=== PATIENT | female | born 1950 | race Caucasian/White ===

== ENCOUNTER 2017-11-11 10:07 | Inpatient (IN) | payer OTHER ==
[~2017-11-11 10:07] MED LIST: LEVALBUTEROL 1.25 MG/3 ML NEB ONE
[2017-11-11] MEDS ORDERED: METHYLPREDNISOLONE 125 MG INJ ONE (10:10)
[2017-11-11] MEDS ORDERED: FUROSEMIDE 40 MG/4 ML VIAL ONE (10:10)
--- OUTSIDE RECORDS SUMMARY | 2017-11-11 10:10 | XMS REPORT | Clinical Summary ---
:1950 Author Organization [facility] Address [address] [place] [address] Care Team Providers Name Role Phone Tushar Melendez MD Primary Care Provider Allergies Active Allergy Reactions Severity Noted Date Comments Codeine Hives, Swelling 07/07/2016 Morphine Other (See Comments) 07/07/2016 Hallucinations Penicillins Hives, Swelling 07/07/2016 Current Medications Prescription Sig. Disp. Refills Start Date End Date Status ALPRAZolam (XANAX) 0.25 MG Take 0.25 mg by 06/21/2016 Active tablet mouth 2 (two) times a day. acetaZOLAMIDE (DIAMOX) 250 Take 125 mg by 06/17/2016 Active MG tablet mouth daily. carvedilol (COREG) 3.125 Take 3.125 mg by 06/12/2016 Active MG tablet mouth 2 (two) times a day with meals. clopidogrel (PLAVIX) 75 mg Take 75 mg by 06/12/2016 Active tablet mouth daily. furosemide (LASIX) 40 mg Take 40 mg by 06/12/2016 Active tablet mouth daily. predniSONE (DELTASONE) 10 Take 10 mg by 06/21/2016 Active mg tablet mouth 2 (two) times a day. ibandronate (BONIVA) 150 Take 150 mg by 06/25/2016 Active mg tablet mouth every 30 (thirty) days. sacubitril-valsartan Take 1 tablet by Active (ENTRESTO) 24-26 mg tablet mouth daily. per tablet calcium carbonate-vitamin Take 1 tablet by Active D3 500 mg-200 unit per mouth daily. tablet Active Problems Problem Noted Date HTN (hypertension) 07/07/2016 CHF (congestive heart failure) 07/07/2016 CAD (coronary artery disease) 07/07/2016 COPD (chronic obstructive pulmonary disease) 07/07/2016 PAF (paroxysmal atrial fibrillation) 07/07/2016 CHF (congestive heart failure), NYHA class III 07/07/2016 Family History Medical History Relation Name Comments Heart disease Brother Heart disease Maternal Grandmother Hypertension Mother Stroke Mother Relation Name Status Comments Brother Maternal Grandmother Mother Social History Tobacco Use Types Packs/Day Years Used Date Current Every Day Smoker Cigarettes 0.5 50 Tobacco Cessation: Ready to Quit: Yes Alcohol Use Drinks/Week oz/Week Comments No Sex Assigned at Date Recorded Not on file Last Filed Vital Signs Not on file Plan of Treatment Health Maintenance Due Date Last Done Comments COLONOSCOPY 1998 MAMMOGRAM 1998 SHINGRIX VACCINE (#1) 1998 ZOSTER VACCINE 2008 PNEUMOCOCCAL POLYSACCHARIDE VACCINE AGE 65 AND OVER 2013 PNEUMOCOCCAL-13 2013 INFLUENZA VACCINE 02/15/2018 Implants Implanted Type Area Inspector Wire Rope Device Expiration Model / Identifier Date Serial / Lot Endotak Gifford G Model 0295 59 Cm Df4 Tachy Lead - [id number] Cardiac Pacing N/A: [place] 06/07/2018 0295 / Implanted: 07/07/2016 (Quantity not on file) Leads or N/A [employer] [id number] / Electrodes or [id number] Accessories Acuity X 4 - [id number] Cardiac Pacing N/A: [place] 11/23/2017 4671 / Implanted: 07/07/2016 (Quantity not on file) Leads or N/A [employer] CRM [id number] / Electrodes or [id number] Accessories Ingevity Mri Pacing Lead 45cm - [id number] Cardiac Pacing N/A: [place] [id number] / Implanted: 07/07/2016 (Quantity not on file) Leads or N/A [employer] [id number] / Electrodes or [id number] Accessories Generator Outside Operator-D Inogen X4 Df4 - [id number] Defibrillator N/A: [place] 03/26 G148 / Implanted: 07/07/2016 (Quantity not on file) ICD Devices N/A [employer] [id number] / [id number] Results Not on fileafter 11/10/2016 Insurance Payer Benefit Plan / Group Subscriber ID Type Phone Address MEDICARE MEDICARE PART A AND B xxxxxxxxxx Medicare [place], [place]
[2017-11-11 10:25] LABS: Arterial Blood Carboxyhemoglob 1.3 % (0-1.5); Blood Gas Oxyhemoglobin 97.3 % (94-97); Blood O2 Saturation 99.3 % (92-98.5)
[2017-11-11 10:59] LABS: Absolute Monocytes 0.7 K/uL (0.1-1.3); Absolute Neutrophil 11.9 K/uL (1.8-8.0); Basophils % 0.4 % (0-1.3); Eosinophils % 2.4 % (0-4.4); Hematocrit 40.4 % (36.0-45.0); Lymphocytes % 7.2 % (15.3-44.8); MCH 29.2 pg (27.0-35.0); MCV 93.2 fL (80-100); MPV 8.3 fL (7.6-11.3); Monocytes % 5.3 % (3.3-12.3); RBC Red Blood Cell Count 4.33 M/uL (3.86-4.86)
[2017-11-11 11:04] LABS: Bicarbonate 35 mEq/L (21-31); Glucose Level 192 mg/dL (65-120); Potassium 4.5 mEq/L (3.6-5.0); Sodium Level 137 mEq/L (135-145)
--- NOTE | 2017-11-11 11:04 | RAD REPORT ---
EXAM DESCRIPTION: RAD - Chest Single View - 11/11/2017 10:57 am CLINICAL HISTORY: Shortness of breath COMPARISON: September 20 TECHNIQUE: AP portable chest image was obtained 1046 hours . FINDINGS: Lungs are extensively fibrotic. Pattern is increased slightly from comparison. Over the sh ort interval this is probably superimposed edema or infiltrate. No mass or consolidation. Heart and v asculature are normal. No measurable pleural effusion and no pneumothorax. No gross bony abnormality seen. No acute aortic finding. Aortic calcifications are again noted. Pacemaker/defibrillator remains in place. IMPRESSION: Diffusely prominent interstitial lung markings increased slightly over baseline. Over such a short interval, interval increase is probably edema or infiltrate rather than progressive fibrosis.
[2017-11-11 11:10] LABS: ALT/SGPT 17 IU/L (10-60); AST/SGOT 27 IU/L (10-42); Albumin 4.6 g/dL (3.2-5.5); Alkaline Phosphatase 93 IU/L (42-121); BUN Blood Urea Nitrogen 13 mg/dL (6-20); Bilirubin Direct 0.1 mg/dL (0-0.2); Bilirubin Total 0.3 mg/dL (0.3-1.2); Creatine Phosphokinase 40 IU/L (22-269); Magnesium 1.9 mg/dL (1.8-2.5); Protein, Total 8.1 g/dL (6.0-8.3)
[2017-11-11 11:13] LABS: CKMB Creatine Kinase MB 6.5 ng/ml (0.3-4.0)
[2017-11-11 11:33] LABS: Protime INR 0.86
--- NOTE | 2017-11-11 11:35 | ER ---
Nurse's Notes [facility] Name: Jeannette Wing Age: 67 yrs Sex: Female : 1950 Arrival Date: 11/11/2017 Time: 10:09 Bed 3 Private MD: Diagnosis: Acute and chronic respiratory failure with hypercapnia;Acute on chronic systolic (congestive) heart failure;Chronic obstructive pulmonary disease with (acute) exacerbation Presentation: 11/11 10:23 Presenting complaint: EMS states: EMS states patient started having increased SOB that ae1 started the previous evening and it gradually increased. EMS states patient was alert upon arrival and gradually became more lethargic, patient was placed on Bipap. Transition of care: patient was not received from another setting of care. Onset of symptoms was November 10, 2017 at 18:00. Initial Sepsis Screen: Does the patient meet any 2 criteria? RR > 20 per min. HR > 90 bpm. Care prior to arrival: Bipap machine applied. 10:23 Method Of Arrival: EMS: [facility] ae1 10:23 Acuity: RON 2 ae1 12:40 Initial Sepsis Screen: Does the patient have a suspected source of infection? Yes: ae1 Productive cough/pneumonia. Triage Assessment: 10:20 General: Appears uncomfortable, slender, malnourished, Behavior is cooperative, ae1 anxious, restless. Pain: Denies pain. EENT: No signs and/or symptoms were reported regarding the EENT system. Neuro: Level of Consciousness is awake, obeys commands, Oriented to person, place, situation. Cardiovascular: Heart tones S1 S2 Patient's skin is warm and dry. Rhythm is irregular. Respiratory: Airway is patent Respiratory effort is labored, gasping, with nasal flaring, with retractions, shallow, Respiratory pattern is regular, tachypnea. GI: No signs and/or symptoms were reported involving the gastrointestinal system. Abdomen is round non-distended. : No signs and/or symptoms were reported regarding the genitourinary system. Derm: Skin is pale. Musculoskeletal: No signs and/or symptoms reported regarding the musculoskeletal system. 10:20 Respiratory: Reports shortness of breath cough that is air hunger labored breathing ae1 Onset: The symptoms/episode began/occurred gradually, the patient has severe shortness of breath. Historical: - Allergies: 10:40 Morphine; ae1 10:40 PENICILLINS; ae1 - Home Meds: 10:40 albuterol sulfate 2.5 mg /3 mL (0.083 %) Inhl nebu 3 mL 3 times per day [Active]; ae1 Plavix 75 mg Oral tab 1 tab once daily [Active]; prednisone 5 mg Oral tab 1 tab once daily [Active]; furosemide 20 mg Oral tab 1 tab once daily [Active]; Coreg 3.125 mg Oral tab 1 tab 2 times per day [Active]; acetaminophen-codeine 300-30 mg Oral tab 1 tab BID [Active]; proair [Active]; acetazolamide 250 mg Oral tab 1 tab once daily [Active]; aspirin 81 mg Oral chew 1 tab once daily [Active]; - PMHx: 10:47 CHF; COPD; Hypertension; ae1 - Immunization history:: Adult Immunizations not up to date. - Social history:: Smoking status: Patient uses tobacco products, smokes one pack cigarettes per day. Screenin:12 Abuse screen: Denies threats or abuse. Nutritional screening: No deficits noted. ae1 Tuberculosis screening: No symptoms or risk factors identified. Fall Risk None identified. Assessment: 10:15 Cardiovascular: Heart tones S1 S2 Patient's skin is warm and dry. Respiratory: Airway ae1 is patent Respiratory effort is labored, with nasal flaring, with retractions, shallow, Respiratory pattern is regular, Breath sounds are absent bilaterally. 11:25 Reassessment: Patient appears more relaxed. patient is resting with eyes closed, ae1 awakens to verbal stimuli, respirations less labored. Patient states symptoms have improved. 11:30 Reassessment: Provider at bedside discussing plan of care. ae1 12:30 Reassessment: Patient appears in no apparent distress at this time. Patient and/or ae1 family updated on plan of care and expected duration. Pain level reassessed. Patient states feeling better. Patient states symptoms have improved. 12:41 Reassessment: Report called to stephanie Whitehead nurse. Registration notified that report ae1 has been called. Vital Signs: 10:01 BP 201 / 102; Pulse 115; Resp 35; Pulse Ox 91% on BiPAP; ae1 10:13 BP 168 / 93; Pulse 102; Resp 29; Pulse Ox 100% on 30% BiPAP; ae1 10:26 BP 142 / 84; Pulse 108; Resp 28; Pulse Ox 100% on 30% BiPAP; ae1 10:35 BP 130 / 82; Pulse 101; Resp 32; Pulse Ox 100% on 30% BiPAP; ae1 10:45 BP 119 / 72; Pulse 108; Resp 26; Pulse Ox 95% on BiPAP; ae1 10:50 BP 121 / 85; Pulse 111; Resp 26; Pulse Ox 97% on 30% BiPAP; ae1 11:02 Weight 40.82 kg (R); ae1 11:15 BP 99 / 70; Pulse 93; Resp 23; Pulse Ox 98% on 30% BiPAP; ae1 12:11 BP 121 / 73; Pulse 103; Resp 22; Pulse Ox 100% on 30% BiPAP; ae1 12:34 BP 112 / 74; Pulse 96; Resp 24; Pulse Ox 98% on 30% BiPAP; ae1 12:36 Temp 98.5(A); ae1 ED Course: 10:09 Patient arrived in ED. jr8 10:15 EKG done, by certified medical technician assistant. reviewed by Delonte Medina MD. tc 10:16 Josue Millard PA is PHCP. jr8 10:16 Delonte Medina MD is Attending Physician. jr8 10:17 Diego Christian, BENITO is Primary Nurse. ae1 10:25 Triage completed. ae1 10:25 Arm band placed on right wrist. EKG completed in triage. Results shown to MD. ae1 10:26 Placed in gown. Bed in low position. Call light in reach. Side rails up X2. Cardiac ae1 monitor on. Pulse ox on. NIBP on. Warm blanket given. 10:53 X-ray completed. Portable x-ray completed in exam room. Patient tolerated procedure jb2 well. 10:54 XRAY Chest (1 view) In Process Unspecified. EDMS 11:34 Tushar Conley MD is Hospitalizing Provider. jr8 12:40 No provider procedures requiring assistance completed. Patient admitted, IV remains in ae1 place. Administered Medications: 10:18 Drug: Nitro Drip - (Nitroglycerin 50 mg, D5W 250 ml) Route: IV; Rate: 10 mcg/min; Site: la1 left hand; 10:57 Follow up: Response: Other; titrated to 5mcg/min at 1050 ae1 11:01 Follow up: Response: Other; Titrated to 2 mcg/min ae1 11:27 Follow up: Discontinued infusion per provider after notified of low BP. ae1 10:18 Drug: Xopenex (3) 1.25 mg Route: Inhalation; la1 10:19 Drug: Lasix 40 mg Route: IVP; Site: left hand; la1 10:19 Drug: SOLU-Medrol 125 mg Route: IVP; Site: left hand; la1 10:20 Not Given (Duplicate Order): SOLU-Medrol 125 mg IVP once la1 Intake: Outcome: 11:35 Decision to Hospitalize by Provider. jr8 13:37 Admitted to Med/surg accompanied by tech, family with patient, via stretcher, room 228, ae1 with oxygen, with chart, Report called to receiving nurse. 13:37 Condition: stable 13:50 Patient left the ED. ae1 Signatures: Dispatcher [employer] EDMS Gurdeep Melton Josh, PA PA jr8 Sandrine Munroe, cna pct EKG Ttc Jase Beal, RN RN la1 Diego Christian, RN RN ae1
[2017-11-11 11:40] LABS: Arterial Blood Carboxyhemoglob 1.7 % (0-1.5); Blood Gas Oxyhemoglobin 92.5 % (94-97); Blood O2 Saturation 94.7 % (92-98.5)
[2017-11-11] MEDS ORDERED: ONDANSETRON 4 MG/2 ML VIAL IV PRN (12:56)
--- NOTE | 2017-11-11 13:51 | EDPHYS ---
Physician Documentation [facility] Name: Jeannette Wing Age: 67 yrs Sex: Female : 1950 Arrival Date: 11/11/2017 Time: 10:09 Bed 3 Private MD: ED Physician Delonte Medina HPI: 11/11 10:27 This 67 yrs old Female presents to ER via EMS with complaints of Respiratory jr8 Distress. 10:27 The patient has shortness of breath at rest. Onset: The symptoms/episode began/occurred jr8 acutely, yesterday, and became worse and became persistent. Duration: The symptoms are continuous. The patient's shortness of breath has no apparent modifying factors. Associated signs and symptoms: Pertinent positives: non-productive cough. Severity of symptoms: At their worst the symptoms were severe. It is unknown whether or not the patient has had similar symptoms in the past. The patient has been recently seen by a physician:. Historical: - Allergies: 10:40 Morphine; ae1 10:40 PENICILLINS; ae1 - Home Meds: 10:40 albuterol sulfate 2.5 mg /3 mL (0.083 %) Inhl nebu 3 mL 3 times per day [Active]; ae1 Plavix 75 mg Oral tab 1 tab once daily [Active]; prednisone 5 mg Oral tab 1 tab once daily [Active]; furosemide 20 mg Oral tab 1 tab once daily [Active]; Coreg 3.125 mg Oral tab 1 tab 2 times per day [Active]; acetaminophen-codeine 300-30 mg Oral tab 1 tab BID [Active]; proair [Active]; acetazolamide 250 mg Oral tab 1 tab once daily [Active]; aspirin 81 mg Oral chew 1 tab once daily [Active]; - PMHx: 10:47 CHF; COPD; Hypertension; ae1 - Immunization history:: Adult Immunizations not up to date. - Social history:: Smoking status: Patient uses tobacco products, smokes one pack cigarettes per day. ROS: 10:27 Eyes: Negative for injury, pain, redness, and discharge, ENT: Negative for injury, jr8 pain, and discharge, Neck: Negative for injury, pain, and swelling, Cardiovascular: Negative for chest pain, palpitations, and edema, Abdomen/GI: Negative for abdominal pain, nausea, vomiting, diarrhea, and constipation, Back: Negative for injury and pain, MS/Extremity: Negative for injury and deformity, Skin: Negative for injury, rash, and discoloration, Neuro: Negative for headache, weakness, numbness, tingling, and seizure. 10:27 Respiratory: Positive for cough, dyspnea on exertion, shortness of breath, wheezing. Exam: 10:27 Eyes: Pupils equal round and reactive to light, extra-ocular motions intact. Lids and jr8 lashes normal. Conjunctiva and sclera are non-icteric and not injected. Cornea within normal limits. Periorbital areas with no swelling, redness, or edema. ENT: Nares patent. No nasal discharge, no septal abnormalities noted. Tympanic membranes are normal and external auditory canals are clear. Oropharynx with no redness, swelling, or masses, exudates, or evidence of obstruction, uvula midline. Mucous membranes moist. Neck: Trachea midline, no thyromegaly or masses palpated, and no cervical lymphadenopathy. Supple, full range of motion without nuchal rigidity, or vertebral point tenderness. No Meningismus. Abdomen/GI: Soft, non-tender, with normal bowel sounds. No distension or tympany. No guarding or rebound. No evidence of tenderness throughout. Back: No spinal tenderness. No costovertebral tenderness. Full range of motion. Skin: Warm, dry with normal turgor. Normal color with no rashes, no lesions, and no evidence of cellulitis. MS/ Extremity: Pulses equal, no cyanosis. Neurovascular intact. Full, normal range of motion. Neuro: Awake and alert, GCS 15, oriented to person, place, time, and situation. Cranial nerves II-XII grossly intact. Motor strength 5/5 in all extremities. Sensory grossly intact. Cerebellar exam normal. Normal gait. 10:27 Cardiovascular: Rate: tachycardic, Rhythm: regular, Pulses: Pulses are 2+ in right radial artery and left radial artery. Heart sounds: normal, normal S1and S2, no S3 or S4, no murmur, no rub, no gallop, Edema: is not appreciated, JVD: is not appreciated. 10:27 Respiratory: severe repiratory distress is noted, Respirations: labored breathing, accessory muscle usage, intercostal retractions, tachypnea, Breath sounds: decreased breath sounds, that are moderate, are scattered, wheezing: expiratory that is mild, is heard diffusely. Vital Signs: 10:01 BP 201 / 102; Pulse 115; Resp 35; Pulse Ox 91% on BiPAP; ae1 10:13 BP 168 / 93; Pulse 102; Resp 29; Pulse Ox 100% on 30% BiPAP; ae1 10:26 BP 142 / 84; Pulse 108; Resp 28; Pulse Ox 100% on 30% BiPAP; ae1 10:35 BP 130 / 82; Pulse 101; Resp 32; Pulse Ox 100% on 30% BiPAP; ae1 10:45 BP 119 / 72; Pulse 108; Resp 26; Pulse Ox 95% on BiPAP; ae1 10:50 BP 121 / 85; Pulse 111; Resp 26; Pulse Ox 97% on 30% BiPAP; ae1 11:02 Weight 40.82 kg (R); ae1 11:15 BP 99 / 70; Pulse 93; Resp 23; Pulse Ox 98% on 30% BiPAP; ae1 12:11 BP 121 / 73; Pulse 103; Resp 22; Pulse Ox 100% on 30% BiPAP; ae1 12:34 BP 112 / 74; Pulse 96; Resp 24; Pulse Ox 98% on 30% BiPAP; ae1 12:36 Temp 98.5(A); ae1 MDM: 10:16 Patient medically screened. jr8 11:33 Data reviewed: vital signs, nurses notes, lab test result(s), EKG, radiologic studies, jr8 plain films, and as a result, I will admit patient. Data interpreted: Pulse oximetry: on room air is 88 %. Counseling: I had a detailed discussion with the patient and/or guardian regarding: the historical points, exam findings, and any diagnostic results supporting the discharge/admit diagnosis, lab results, radiology results, the need for further work-up and treatment in the hospital. 11/11 10:15 Order name: ABG; Complete Time: eb 11/11 10:17 Order name: Basic Metabolic Panel; Complete Time: :20 11/11 10:17 Order name: BNP; Complete Time: 11:11/11 10:17 Order name: CBC with Diff; Complete Time: 11:20 11/11 10:17 Order name: Ckmb; Complete Time: 11:11/11 10:17 Order name: CPK; Complete Time: 11:20 11/11 10:17 Order name: LFT's; Complete Time: 11:20 11/11 10:17 Order name: Magnesium; Complete Time: 11:20 11/11 10:17 Order name: PT-INR; Complete Time: 12:07 11/11 10:17 Order name: Ptt, Activated; Complete Time: 12:07 11/11 10:17 Order name: Troponin (emerg Dept Use Only); Complete Time: 11:20 11/11 10:17 Order name: Blood Culture Adult (2) 11/11 10:20 Order name: Lactate; Complete Time: 10:58 11/11 11:24 Order name: ABG; Complete Time: 12:11/11 10:17 Order name: XRAY Chest (1 view); Complete Time: 11:20 11/11 10:17 Order name: EKG; Complete Time: 10:18 11/11 10:17 Order name: Cardiac monitoring; Complete Time: 10:11/11 10:17 Order name: EKG - Nurse/Tech; Complete Time: 10:11/11 10:17 Order name: IV Saline Lock; Complete Time: 10:11/11 10:17 Order name: Labs collected and sent; Complete Time: 10:11/11 10:17 Order name: O2 Per Protocol; Complete Time: 10:19 11/11 10:17 Order name: O2 Sat Monitoring; Complete Time: 10:11/11 10:17 Order name: Urine Dipstick-Ancillary (obtain specimen); Complete Time: 13:06 11/11 10:21 Order name: BIPAP 11/11 12:35 Order name: Urine Dipstick--Ancillary (enter results) ag Administered Medications: 10:18 Drug: Nitro Drip - (Nitroglycerin 50 mg, D5W 250 ml) Route: IV; Rate: 10 mcg/min; Site: [facility] left hand; 10:57 Follow up: Response: Other; titrated to 5mcg/min at 1050 ae1 11:01 Follow up: Response: Other; Titrated to 2 mcg/min ae1 11:27 Follow up: Discontinued infusion per provider after notified of low BP. ae1 10:18 Drug: Xopenex (3) 1.25 mg Route: Inhalation; la1 10:19 Drug: Lasix 40 mg Route: IVP; Site: left hand; la1 10:19 Drug: SOLU-Medrol 125 mg Route: IVP; Site: left hand; la1 10:20 Not Given (Duplicate Order): SOLU-Medrol 125 mg IVP once la1 Disposition: 17:22 Co-signature as Attending Physician, Delonte Medina MD I agree with the assessment and kdr plan of care. Disposition: 11/11/17 11:35 Hospitalization ordered by Tushar Conley for Inpatient Admission. Preliminary diagnosis are Acute and chronic respiratory failure with hypercapnia, Acute on chronic systolic (congestive) heart failure, Chronic obstructive pulmonary disease with (acute) exacerbation. - Bed requested for Telemetry/MedSurg (Inpatient). - Status is Inpatient Admission. ae1 - Condition is Fair. - Problem is new. - Symptoms have improved. UTI on Admission? No Signatures: Dispatcher [employer] Sri Reese RN Delonte Bryant MD MD kdr Roszak, Josh, PA PA jr8 Jase Beal RN RN la1 Diego Christian RN RN ae1 Marine Chambers
[2017-11-11 14:10] VITALS: BMI 18.3
[2017-11-11 14:49] LABS: Urine Appearance CLEAR; Urine Bilirubin NEGATIVE (NEG); Urine Blood TRACE (NEG); Urine Color YELLOW; Urine Glucose NEGATIVE (NEG); Urine Protein NEGATIVE (NEG); Urine Urobilinogen 0.2 mg/dL (0.2-1.0)
[2017-11-11 14:56] LABS: Urine Microscopic Reflex NO UMIC
--- NOTE | 2017-11-11 16:26 | EKG ---
Test Date: 2017-11-11 Test Time: 10:10:34 [employer]: [employer] MEASUREMENT RESULTS: Intervals: Rate: 104 WI: 112 QRSD: 102 QT: 372 QTc: 489 [place]: P: 85 WI: 112 QRS: 78 T: 71 INTERPRETIVE STATEMENTS: Atrial-sensed ventricular-paced rhythm Biventricular pacemaker detected Abnormal ECG Compared to ECG 09/20/2017 21:34:32 No significant changes Electronically Signed On 11-11-17 16:23:37 CDT by Petar Huizar
[2017-11-11] MEDS: FUROSEMIDE 20 MG/ 2ML VIAL IV SCH (17:29)
[2017-11-11] MEDS: METHYLPREDNISOLONE 40 MG INJ IV SCH (17:30)
[2017-11-11] MEDS: CARVEDILOL 3.125 MG TAB PO SCH (21:00)
[2017-11-11] MEDS: levoFLOXacin 500 MG TAB PO SCH (21:37)
[2017-11-11] MEDS: SACUBITRIL/VALSARTAN 24/26 MG TAB PO SCH (21:37)
[2017-11-12] MEDS: ACETAMINOPHEN 500 MG TAB PO PRN ×3 (00:33→19:19)
[2017-11-12] MEDS: METHYLPREDNISOLONE 40 MG INJ IV SCH ×2 (00:33→06:17)
[2017-11-12] MEDS: IPRATROPIUM BROM 0.5MG/2.5ML NEB PRN ×2 (05:32→13:22)
[2017-11-12] MEDS: ALBUTEROL 2.5 MG/3 ML NEB SOL NEB PRN ×2 (05:33→13:22)
[2017-11-12 05:45] LABS: Absolute Lymphocytes (CBC) 0.5 K/uL (0.7-4.9); Absolute Monocytes 0.3 K/uL (0.1-1.3); Absolute Neutrophil 10.7 K/uL (1.8-8.0); BUN Blood Urea Nitrogen 28 mg/dL (6-20); Bicarbonate 38 mEq/L (21-31); Glucose Level 144 mg/dL (65-120); Hematocrit 34.2 % (36.0-45.0); Lymphocytes % 4.3 % (15.3-44.8); MCV 92.7 fL (80-100); MPV 8.6 fL (7.6-11.3); Monocytes % 2.8 % (3.3-12.3); Potassium 4.4 mEq/L (3.6-5.0); RBC Red Blood Cell Count 3.69 M/uL (3.86-4.86); Sodium Level 139 mEq/L (135-145)
--- NOTE | 2017-11-12 06:14 | HP ---
Date of Admission: 11/11/2017 Chief Complaint: Respiratory failure. History Of Present Illness: A 67-year-old female was brought to the emergency room with increased dy spnea. The patient's evaluation showed acute on chronic respiratory failure with elevated pCO2. The patient is known to have history of severe COPD as well as congestive heart failure. The patient de nied any history of chest pain. Past Medical History: Positive for COPD, congestive heart failure, hypertension. Family History: Noncontributory. Personal History: The patient smokes intermittently. Home Medicines: Please refer to the chart. Review of Systems: The patient denied any syncope, fever, chills, rigors. Physical Examination: General: A 67-year-old female, on BiPAP. HEENT: Otherwise negative. Neck: Supple, JVD negative. Chest: Bilateral wheezes. Poor air entry. Heart: Regular. Abdomen: Soft, nontender. Extremities: No edema. Laboratory Data: White count 14,000. Chest x-ray showed COPD findings. No evidence of pneumonia. Assessment: 1.Chronic obstructive pulmonary disease exacerbation with acute respiratory failure. 2.Need for BiPAP. 3.Congestive heart failure, compensated. 4.Hypertension. Plan: The patient is on BiPAP and requesting DNR. The patient will be given supportive care as well as breathing treatments. The patient will receive IV steroids. RAMIRO/KARLOS Voice ID: [id number]
[2017-11-12 08:03] LABS: Blood Morphology Comment NOT SEEN (NOT SEEN); Platelet Estimate ADEQ
[2017-11-12] MEDS: acetaZOLAMIDE 250 MG TAB PO SCH (08:56)
[2017-11-12] MEDS: FUROSEMIDE 20 MG/ 2ML VIAL IV SCH ×2 (08:56→16:27)
[2017-11-12] MEDS: ALPRAZOLAM 0.25 MG TABLET PO PRN ×2 (08:56→19:19)
[2017-11-12] MEDS: CARVEDILOL 3.125 MG TAB PO SCH ×2 (08:56→20:48)
[2017-11-12] MEDS: SACUBITRIL/VALSARTAN 24/26 MG TAB PO SCH ×2 (08:56→20:48)
[2017-11-12] MEDS: CLOPIDOGREL 75 MG TABLET PO SCH (08:56)
--- NOTE | 2017-11-12 10:23 | P.CNS ---
Date of Consult: 11/12/17 Reason for Consult: Respiratory failure Chief Complaint: Altered mental status History of Present Illness: Patient is 67 years of age well known to me she has a history of terminal COPD apparently her light went out last night became more hypoxic short of breath altered mental status was admitted to this hospital with hypoxic hypercapnic respiratory failure she is back to her baseline doing well has some cough for about a week otherwise shortness of breath is stable denies any edema in fact I recently saw her min office in November she is doing good Allergies morphine Allergy (Verified 07/07/17 06:12) Anaphylaxis Penicillins Allergy (Verified 07/07/17 06:12) Anaphylaxis codeine Adverse Reaction (Verified 07/07/17 06:12) Due to Pacemaker/Defibrillator Home Medications: Clopidogrel Bisulfate [Plavix*] 75 mg PO DAILY #0 tablet 12/05/13 Carvedilol [Coreg*] 3.125 mg PO BID 06/04/15 Furosemide [Lasix] 40 mg PO DAILY 06/04/15 Alprazolam [Xanax*] 0.25 mg PO BID PRN #20 tab 04/11/16 Prednisone [Prednisone*] 5 mg PO DAILY #90 tab 07/30/16 Acetazolamide [Diamox*] 250 mg PO DAILY 11/26/16 Acetaminophen with Codeine [Acetaminophen-Cod #3 Tablet] 1 each PO BID PRN 07/07 Albuterol Neb [Proventil 0.083% Neb Soln] 1 vial NEB PRN PRN 09/21/17 Arformoterol Tartrate [Brovana] 1 vial NEB PRN PRN 09/21/17 Sacubitril/Valsartan [Entresto 24 mg-26 mg Tablet] 1 pill PO BID 09/21/17 - Past Medical/Surgical History Diabetic: No -: tendinitis on both hands -: COPD -: CHF -: HTN -: arthritis -: pacemaker/defibrillator -: HYSTERECTOMY -: APPENDECTOMY - Family History Mother Notes: mom from collapsing blood vessels Father Medical History: Heart disease Notes: heart attack Brother Medical History: Cancer Notes: lung cancer - Social History Smoking Status: Current every day smoker Alcohol use: No CD- Drugs: No Caffeine use: Yes Place of Residence: Home Review of Systems 10-point ROS is otherwise unremarkable General: Weakness Respiratory: Cough, Shortness of Breath Physical Examination Temp Pulse Resp BP Pulse Ox 97.3 F 103 H 18 152/78 H 97 11/12/17 08:00 11/12/17 08:00 11/12/17 08:00 11/12/17 08:00 11/12/17 08:00 General: Alert, Oriented x3 HEENT: Atraumatic Neck: Supple Respiratory: Expiratory wheezes Cardiovascular: No edema, Normal pulses, Regular rate/rhythm Laboratory Data (last 24 hrs) 11/11/17 10:30: PT 10.1, INR 0.86, APTT 28.9 11/11/17 10:30: WBC 14.0 H, Hgb 12.7, Hct 40.4, Plt Count 214 11/11/17 10:30: B-Natriuretic Peptide 184 H 11/11/17 10:30: Sodium 137, Potassium 4.5, BUN 13, Creatinine 0.52, Glucose 192 H, Magnesium 1.9, Total Bilirubin 0.3, AST 27, ALT 17, Alkaline Phosphatase 93 - Problems (1) COPD exacerbation Onset Date: 06/04/15 Current Visit: No Status: Acute Plan: Patient is 67 years of age with a history of terminal COPD admitted with worsening dyspnea hypercapnia altered mental status apparently have light went out in the apartment that she was unaware of it back to her baseline she is coughing up some phlegm denies any edema echocardiogram was normal recently of order some sputum cultures patient can be discharged home tomorrow change to p.o. prednisone resume her home medications she has of BiPAP at home
[2017-11-12] MEDS: levoFLOXacin 500 MG TAB PO SCH (20:46)
[2017-11-12] MEDS: predniSONE 20 MG TAB PO SCH (20:46)
[2017-11-13] MEDS: ALPRAZOLAM 0.25 MG TABLET PO PRN ×2 (07:40→17:20)
[2017-11-13] MEDS: ACETAMINOPHEN 500 MG TAB PO PRN ×2 (07:40→17:20)
[2017-11-13] MEDS: ARFORMOTEROL TARTRATE 15 MCG/2 ML VIAL.NEB NEB PRN ×2 (08:45→19:05)
[2017-11-13] MEDS: CARVEDILOL 3.125 MG TAB PO SCH ×2 (09:13→20:53)
[2017-11-13] MEDS: FUROSEMIDE 20 MG/ 2ML VIAL IV SCH ×2 (09:13→17:14)
[2017-11-13] MEDS: acetaZOLAMIDE 250 MG TAB PO SCH (09:13)
[2017-11-13] MEDS: SACUBITRIL/VALSARTAN 24/26 MG TAB PO SCH ×2 (09:14→20:53)
[2017-11-13] MEDS: CLOPIDOGREL 75 MG TABLET PO SCH (09:14)
[2017-11-13] MEDS: predniSONE 20 MG TAB PO SCH ×2 (09:14→20:52)
--- NOTE | 2017-11-13 14:05 | PN ---
The patient is doing better. She is off BiPAP. She is eating. She still has considerable amount of wheezing. The patient will be continued. She has signed DNR. The patient will be reexamined tomor ni. If she is stable, she will be discharged on oral prednisone. RAMIRO/KARLOS Voice ID: [id number] Report ID: [id number]
[2017-11-13] MEDS: ALBUTEROL 2.5 MG/3 ML NEB SOL NEB PRN (19:05)
[2017-11-13] MEDS: IPRATROPIUM BROM 0.5MG/2.5ML NEB PRN (19:06)
[2017-11-13] MEDS: levoFLOXacin 500 MG TAB PO SCH (20:52)
[2017-11-14] MEDS: ACETAMINOPHEN 500 MG TAB PO PRN ×2 (05:52→17:24)
[2017-11-14] MEDS: ALPRAZOLAM 0.25 MG TABLET PO PRN ×2 (05:52→17:25)
[2017-11-14] MEDS: ALBUTEROL 2.5 MG/3 ML NEB SOL NEB PRN ×3 (07:50→20:08)
[2017-11-14] MEDS: ARFORMOTEROL TARTRATE 15 MCG/2 ML VIAL.NEB NEB PRN ×2 (07:51→20:08)
[2017-11-14] MEDS: CARVEDILOL 3.125 MG TAB PO SCH ×2 (08:56→21:13)
[2017-11-14] MEDS: FUROSEMIDE 20 MG/ 2ML VIAL IV SCH ×2 (08:57→17:21)
[2017-11-14] MEDS: CLOPIDOGREL 75 MG TABLET PO SCH (08:57)
[2017-11-14] MEDS: acetaZOLAMIDE 250 MG TAB PO SCH (08:57)
[2017-11-14] MEDS: predniSONE 20 MG TAB PO SCH ×2 (08:57→21:13)
[2017-11-14] MEDS: SACUBITRIL/VALSARTAN 24/26 MG TAB PO SCH ×2 (08:57→21:14)
[2017-11-14] MEDS: IPRATROPIUM BROM 0.5MG/2.5ML NEB PRN (20:08)
[2017-11-14] MEDS: levoFLOXacin 500 MG TAB PO SCH (21:13)
[2017-11-14] MEDS: ENSURE ENLIVE 237 ML CAN PO SCH (21:22)
--- NOTE | 2017-11-15 03:05 | PN ---
The patient needs BiPAP only intermittently. The patient has kazz-qz-ebdrznua wheezing. Sputum is l ight in color and smaller in quantity. The patient signed DNR papers. Presently, she is on oral adalberto roids. If she looks stable, she will be discharged in the a.m. RAMIRO/KARLOS Voice ID: [id number] Report ID: [id number]
[2017-11-15] MEDS: ACETAMINOPHEN 500 MG TAB PO PRN (06:02)
[2017-11-15] MEDS: ALPRAZOLAM 0.25 MG TABLET PO PRN (06:02)
[2017-11-15] MEDS: ARFORMOTEROL TARTRATE 15 MCG/2 ML VIAL.NEB NEB PRN (08:04)
[2017-11-15] MEDS: ENSURE ENLIVE 237 ML CAN PO SCH (09:00)
[2017-11-15] MEDS: predniSONE 20 MG TAB PO SCH (09:51)
[2017-11-15] MEDS: FUROSEMIDE 20 MG/ 2ML VIAL IV SCH (09:51)
[2017-11-15] MEDS: CLOPIDOGREL 75 MG TABLET PO SCH (09:51)
[2017-11-15] MEDS: SACUBITRIL/VALSARTAN 24/26 MG TAB PO SCH (09:51)
[2017-11-15] MEDS: acetaZOLAMIDE 250 MG TAB PO SCH (09:51)
[2017-11-15] MEDS: CARVEDILOL 3.125 MG TAB PO SCH (09:51)
[2017-11-15 11:18] VITALS: O2SAT 100
[2017-11-15 17:02] VITALS: BP 113/70; TEMP 98.6
[2017-11-18 14:24] LABS: Urine Blood TRACE (NEG); Urine Glucose NEGATIVE (NEG); Urine Protein 1+ (NEG); Urine pH 5.5 (5.0-7.0)
--- NOTE | 2017-12-25 18:25 | DS ---
Date of Discharge: 11/15/2017 Final Diagnoses: 1.Chronic obstructive pulmonary disease exacerbation. 2.Acute respiratory failure, needing BiPAP. 3.Compensated congestive heart failure. 4.Hypertension. 5.Anxiety disorder, chronic. Hospital Course: This patient was admitted through emergency room because of acute respiratory failu re with CO2 retention. The patient had BiPAP done. The patient also was seen by Dr. Dupree as a P ulmonary consultation. The patient was given steroids and breathing treatments. She showed improvem ent over the next few days with decreased dyspnea and improved mentation. The patient was discharged on oral steroids and continued breathing treatments, and a followup was advised in the office. Laboratory Data: White count 14,000. Chest x-ray, COPD changes without any pneumonia. RAMIRO/KARLOS Voice ID: [id number] Report ID: [id number]
== END 2017-11-15 12:25 | disposition home or self-care (01) | DRG 190 ==
LOC: ER 10:07 → ERHOLD 11:39 → 2ND 12:43
PROVIDERS: ADMIT Physician Assistant; ATTEND Internal Medicine
PROC: 5A09457 Assistance with Respiratory Ventilation, 24-96 Consecutive Hours, Continuous Positive Airway Pressure (ICD-10-PCS; principal; 2017-11-11)
DX: J44.1 Chronic obstructive pulmonary disease with (acute) exacerbation (principal); J96.22 Acute and chronic respiratory failure with hypercapnia; I11.0 Hypertensive heart disease with heart failure; I50.9 Heart failure, unspecified; Z88.0 Allergy status to penicillin
CPT/HCPCS: 36415; 71045; 80048; 80076; 81003; 82550; 82553; 82805; 83605; 83735; 83880; 84484; 85025; 85610; 85730; 87040; 87070; 87205; 93005; 94640; 94660; 94760; 96374; 96375; 99285; J1940; J2920; J2930; J7512; J7605

== ENCOUNTER 2018-03-20 20:03 | Inpatient (IN) | payer OTHER ==
--- OUTSIDE RECORDS SUMMARY | 2018-03-20 20:05 | XMS REPORT | Clinical Summary ---
:1950 Author Organization [facility] Address [address] [place] [address] Care Team Providers Name Role Phone Tushar [...] Health Maintenance Due Date Last Done Comments BREAST CANCER SCREENING 1998 COLON CANCER SCREENING 1998 SHINGRIX VACCINE (#1) 1998 ZOSTER VACCINE 2008 PNEUMOCOCCAL POLYSACCHARIDE VACCINE AGE 65 AND OVER 2013 PNEUMOCOCCAL-13 2013 INFLUENZA VACCINE 02/15/2018 Implants Implanted Type Area Weaving Instructor Device Expiration Model / Identifier Date Serial / Lot Endotak [place] G Model 0295 59 Cm Df4 Tachy Lead - [id number] Cardiac Pacing N/A: [place] 06/07/2018 0295 / Implanted: 07/07/2016 (Quantity not on file) Leads or N/A Volve [id number] / Electrodes or [id number] Accessories Acuity X 4 - [id number] Cardiac Pacing N/A: [place] 11/23/2017 4671 / Implanted: 07/07/2016 (Quantity not on file) Leads or N/A Volve CRM [id number] / Electrodes or [id number] Accessories Ingevity Mri Pacing Lead 45cm - [id number] Cardiac Pacing N/A: [place] 7740 45 / Implanted: 07/07/2016 (Quantity not on file) Leads or N/A Volve CRM [id number] / Electrodes or [id number] Accessories Generator District Supervisor-D Inogen X4 Df4 - [id number] Defibrillator N/A: [place] 03/26 G148 / Implanted: 07/07/2016 (Quantity not on file) ICD Devices N/A [employer]- [id number] / [id number] Results Not on fileafter 03/19/2017 Insurance Payer Benefit Plan / Group Subscriber ID Type Phone Address MEDICARE MEDICARE PART A AND B xxxxxxxxxx Medicare [place], [place]
[2018-03-20 20:51] LABS: Arterial Blood Carboxyhemoglob 1.3 % (0-1.5); Blood Gas Oxyhemoglobin 96.9 % (94-97); Blood O2 Saturation 99.3 % (92-98.5)
[2018-03-20 20:52] LABS: Absolute Monocytes 0.9 K/uL (0.1-1.3); Absolute Neutrophil 8.1 K/uL (1.8-8.0); Basophils % 0.1 % (0-1.3); Eosinophils % 1.2 % (0-4.4); Hematocrit 39.1 % (36.0-45.0); Lymphocytes % 9.5 % (15.3-44.8); MCH 31.1 pg (27.0-35.0); MPV 7.1 fL (7.6-11.3); Monocytes % 8.9 % (3.3-12.3); RBC Red Blood Cell Count 4.25 M/uL (3.86-4.86)
--- NOTE | 2018-03-20 20:55 | RAD REPORT ---
EXAM DESCRIPTION: RADChest Single View03/20/2018 8:40 pm CLINICAL HISTORY: Cough;Dyspnea< COMPARISON: Chest Single View dated 11/11/2017; FINDINGS: The lungs appear clear of acute infiltrate. The heart is mildly enlarged. Pacemaker leads are in place. IMPRESSION: No acute abnormalities displayed
[2018-03-20 21:03] LABS: Protime INR 0.97
[2018-03-20 21:11] LABS: ALT/SGPT 21 U/L (12-78); AST/SGOT 25 U/L (15-37); Albumin 3.7 g/dL (3.4-5.0); Alkaline Phosphatase 105 U/L (45-117); BUN Blood Urea Nitrogen 20 mg/dL (7-18); Bicarbonate 40 mmol/L (21-32); Bilirubin Direct 0.1 mg/dL (0-0.2); Bilirubin Total 0.5 mg/dL (0.2-1.0); CKMB Creatine Kinase MB 2.4 ng/mL (0.3-3.6); Creatine Phosphokinase 32 U/L (26-192); Glucose Level 103 mg/dL (74-106); Magnesium 2.4 mg/dL (1.8-2.4); NT PRO-BNP 448 pg/mL (<125); Potassium 3.6 mmol/L (3.5-5.1); Protein, Total 7.5 g/dL (6.4-8.2); Sodium Level 137 mmol/L (136-145); Troponin (Emerg Dept Use Only) < 0.02 ng/mL (0.0-0.045)
[2018-03-20] MEDS ORDERED: ALBUTEROL 2.5 MG/3 ML NEB SOL ONE (21:36)
[2018-03-20] MEDS ORDERED: IPRATROPIUM BROM 0.5MG/2.5ML ONE (21:36)
[2018-03-20] MEDS ORDERED: METHYLPREDNISOLONE 125 MG INJ ONE (23:20)
--- NOTE | 2018-03-20 23:22 | EDPHYS ---
Physician Documentation [facility] Name: Jeannette Wing Age: 67 yrs Sex: Female : 1950 Arrival Date: 03/20/2018 Time: 20:08 Bed 25 Private MD: Chris Dupree K ED Physician Jan Chan HPI: 03/20 20:20 This 67 yrs old Female presents to ER via EMS with complaints of Shortness Of pkl Breath. 20:20 The patient has shortness of breath at rest. Onset: The symptoms/episode began/occurred pkl 5 day(s) ago. Associated signs and symptoms: Pertinent positives: productive cough. Patient said she started on Levaquin 3 days ago ( Given by Dr. Dupree ). Said she is not any better.. Historical: - Allergies: 20:17 Morphine; tl3 20:17 PENICILLINS; tl3 - Home Meds: 20:17 albuterol sulfate 2.5 mg /3 mL (0.083 %) Inhl nebu 3 mL 3 times per day [Active]; tl3 acetazolamide 250 mg Oral tab 1 tab once daily [Active]; alprazolam 0.25 mg Oral tab 1 tab BID [Active]; Fosamax 70 mg Oral tab 1 tab once wkly [Active]; prednisone 5 mg Oral tab 1 tab once daily [Active]; furosemide 40 mg oral tab 1 tab once daily [Active]; Plavix 75 mg Oral tab 1 tab once daily [Active]; carvedilol 3.125 mg oral tab 1 tab 2 times per day [Active]; Brovana 15 mcg/2 mL inhalation nebu 2 mL 2 times per day [Active]; Entresto 24-26 mg Oral tab 1 tab twice a day [Active]; 21:39 aspirin 81 mg Oral chew 1 tab once daily [Active]; lp1 - PMHx: 21:39 CHF; COPD; Hypertension; lp1 - PSHx: 21:42 Pacemaker/Defibrillator; Appendectomy; lp1 - Immunization history:: Adult Immunizations up to date. - Social history:: Smoking status: Patient/guardian denies using tobacco, never smoked. - Ebola Screening: : No symptoms or risks identified at this time No symptoms or risks identified at this time. ROS: 20:20 Eyes: Negative for injury, pain, redness, and discharge, ENT: Negative for injury, pkl pain, and discharge, Neck: Negative for injury, pain, and swelling, Cardiovascular: Negative for chest pain, palpitations, and edema. 20:20 Respiratory: Positive for cough, with yellow sputum, shortness of breath, at rest. 20:20 Abdomen/GI: Negative for abdominal pain, nausea, vomiting, and diarrhea. 20:20 Back: Negative for acute changes. 20:20 : Negative for urinary symptoms. 20:20 MS/extremity: Negative for acute changes. 20:20 Skin: Negative for rash. 20:20 Neuro: Negative for altered mental status. Exam: 20:20 Head/Face: Normocephalic, atraumatic. Eyes: Pupils equal round and reactive to light, pkl extra-ocular motions intact. Lids and lashes normal. Conjunctiva and sclera are non-icteric and not injected. Cornea within normal limits. Periorbital areas with no swelling, redness, or edema. ENT: Nares patent. No nasal discharge, no septal abnormalities noted. Tympanic membranes are normal and external auditory canals are clear. Oropharynx with no redness, swelling, or masses, exudates, or evidence of obstruction, uvula midline. Mucous membranes moist. Neck: Trachea midline, no thyromegaly or masses palpated, and no cervical lymphadenopathy. Supple, full range of motion without nuchal rigidity, or vertebral point tenderness. No Meningismus. Chest/axilla: Normal chest wall appearance and motion. Nontender with no deformity. No lesions are appreciated. Cardiovascular: Regular rate and rhythm with a normal S1 and S2. No gallops, murmurs, or rubs. Normal PMI, no JVD. No pulse deficits. 20:20 Respiratory: moderate respiratory distress is noted, Respirations: labored breathing, that is mild, Breath sounds: rales, that are mild, are scattered, bronchial sounds, that are mild, are scattered. 20:20 Abdomen/GI: Bowel sounds: normal, Palpation: abdomen is soft and non-tender, in all quadrants. 20:20 Back: Exam negative for acute changes. 20:20 : Exam negative for acute changes. 20:20 Musculoskeletal/extremity: Exam is negative for acute changes. 20:20 Skin: Exam negative for rash. 20:20 Neuro: Orientation: appropriate for stated age, Mentation: is normal, Cranial nerves: grossly normal, Motor: is normal. Vital Signs: 20:17 BP 140 / 82; Pulse 91; Resp 32; Temp 98.6(O); Pulse Ox 100% on 3 lpm NC; tl3 21:10 BP 111 / 70; Pulse 91; Resp 32; Pulse Ox 96% on 25% BiPAP; lp1 21:30 BP 108 / 75; Pulse 86; Resp 22; Pulse Ox 100% on 25% BiPAP; lp1 22:30 BP 105 / 68; Pulse 99; Resp 26; Pulse Ox 95% on 25% BiPAP; lp1 23:15 BP 119 / 73; Pulse 90; Resp 21; Pulse Ox 97% on 25% BiPAP; Weight 38.56 kg; lp1 21:10 14/6, RR 10, 25% O2 lp1 MDM: 20:09 Patient medically screened. pkl 22:04 Data reviewed: vital signs, nurses notes, lab test result(s), EKG, radiologic studies, pkl CT scan, plain films. 03/20 20:20 Order name: Basic Metabolic Panel pkl 03/20 20:20 Order name: CBC with Diff pkl 03/20 20:20 Order name: Ckmb pkl 03/20 20:20 Order name: CPK; Complete Time: 21:23 pkl 03/20 20:20 Order name: LFT's; Complete Time: :23 pkl 03/20 20:20 Order name: Magnesium; Complete Time: 21:23 pkl 03/20 20:20 Order name: NT PRO-BNP; Complete Time: 21:23 pkl 03/20 20:20 Order name: PT-INR; Complete Time: 21:23 pkl 03/20 20:20 Order name: Ptt, Activated; Complete Time: 21:23 pkl 03/20 20:20 Order name: Troponin (emerg Dept Use Only); Complete Time: 21:23 pkl 03/20 20:20 Order name: XRAY Chest (1 view); Complete Time: 21:23 pkl 03/20 20:20 Order name: EKG; Complete Time: 20:22 pkl 03/20 20:20 Order name: Cardiac monitoring; Complete Time: 20:36 pkl 03/20 20:20 Order name: EKG - Nurse/Tech; Complete Time: 21:06 pkl 03/20 20:20 Order name: IV Saline Lock; Complete Time: 20:36 pkl 03/20 20:20 Order name: Labs collected and sent; Complete Time: 20:36 pkl 03/20 20:20 Order name: O2 Per Protocol; Complete Time: 20:35 pkl 03/20 20:20 Order name: O2 Sat Monitoring; Complete Time: 20:35 pkl 03/20 20:20 Order name: ABG; Complete Time: 21:23 pkl 03/20 20:20 Order name: Procalcitonin; Complete Time: 22:04 pkl 03/20 20:20 Order name: Lactate; Complete Time: 21:23 pkl 03/20 20:20 Order name: Blood Culture Adult (2) pkl 03/20 20:20 Order name: D-Dimer; Complete Time: 21:23 pkl 03/20 20:21 Order name: Basic Metabolic Panel; Complete Time: 21:23 EDMS 03/20 20:21 Order name: CBC with Automated Diff; Complete Time: 21:23 EDMS 03/20 20:21 Order name: CKMB Creatine Kinase MB; Complete Time: 21:23 EDMS 03/20 21:26 Order name: CT Chest For PE Angio pkl Administered Medications: 21:37 Drug: Albuterol - atroVENT (3:1) (2.5 mg - 0.5 mg) 3 ml Route: Nebulizer; 1 03/21 00:02 Follow up: Response: No adverse reaction [facility] 03/20 23:23 Drug: SOLU-Medrol 125 mg Route: IVP; Site: left antecubital; 1 03/21 00:02 Follow up: Response: No adverse reaction [facility] Disposition: 03/20/18 23:21 Hospitalization ordered by Tushar Conley for Observation. Preliminary diagnosis is Acute dyspnea. COPD Exacerbation. - Bed requested for Telemetry/MedSurg (observation). - Status is Observation. lp1 - Condition is Stable. - Problem is new. - Symptoms have improved. UTI on Admission? No Signatures: Dispatcher [employer] EDMA Zandra Dangelo RN RN mw Lam, Pin, MD MD pkl Danay Bhatia RN RN lp1 Johanne Mock RN RN tl3 Corrections: (The following items were deleted from the chart) 03/20 23:48 23:21 Hospitalization Ordered by Tushar Conely MD for Observation. Preliminary diagnosis mw is Acute dyspnea. COPD Exacerbation. Bed requested for Telemetry/MedSurg (observation). Status is Observation. Condition is Stable. Problem is new. Symptoms have improved. UTI on Admission? No. pkl 03/21 00:11 03/20 23:48 03/20/2018 23:21 Hospitalization Ordered by Tushar Conley MD for Observation. lp1 Preliminary diagnosis is Acute dyspnea. COPD Exacerbation. Bed requested for Telemetry/MedSurg (observation). Status is Observation. Condition is Stable. Problem is new. Symptoms have improved. UTI on Admission? No. mw
--- NOTE | 2018-03-20 23:22 | ER ---
Nurse's Notes [facility] Name: Jeannette Wing Age: 67 yrs Sex: Female : 1950 Arrival Date: 03/20/2018 Time: 20:08 Bed 25 Private MD: Chris Dupree K Diagnosis: Acute dyspnea. COPD Exacerbation Presentation: 03/20 20:10 Presenting complaint: EMS states: Pt c/o shortness of breath, has been on Levaquin for tl3 three days with no improvement. Uses 3 l/m O2 at home, ssats are 100% on O2. Transition of care: patient was not received from another setting of care. Onset of symptoms was March 14, 2018 at 07:00. Risk Assessment: Do you want to hurt yourself or someone else? Patient reports no desire to harm self or others. Initial Sepsis Screen: Does the patient meet any 2 criteria? No. Patient's initial sepsis screen is negative. Does the patient have a suspected source of infection? Yes: Productive cough/pneumonia. Care prior to arrival: None. 20:10 Method Of Arrival: EMS: [facility] tl3 20:10 Acuity: RON 3 tl3 Triage Assessment: 20:17 General: Appears uncomfortable, well groomed, well developed, well nourished, Behavior tl3 is calm, cooperative, appropriate for age. Pain: Complains of pain in chest. EENT: No signs and/or symptoms were reported regarding the EENT system. Neuro: Cardiovascular: Patient's skin is warm and dry. Respiratory: Reports shortness of breath cough that is air hunger Onset: The symptoms/episode began/occurred gradually, the patient has severe shortness of breath. Historical: - Allergies: 20:17 Morphine; tl3 20:17 PENICILLINS; tl3 - Home Meds: 20:17 albuterol sulfate 2.5 mg /3 mL (0.083 %) Inhl nebu 3 mL 3 times per day [Active]; tl3 acetazolamide 250 mg Oral tab 1 tab once daily [Active]; alprazolam 0.25 mg Oral tab 1 tab BID [Active]; Fosamax 70 mg Oral tab 1 tab once wkly [Active]; prednisone 5 mg Oral tab 1 tab once daily [Active]; furosemide 40 mg oral tab 1 tab once daily [Active]; Plavix 75 mg Oral tab 1 tab once daily [Active]; carvedilol 3.125 mg oral tab 1 tab 2 times per day [Active]; Brovana 15 mcg/2 mL inhalation nebu 2 mL 2 times per day [Active]; Entresto 24-26 mg Oral tab 1 tab twice a day [Active]; 21:39 aspirin 81 mg Oral chew 1 tab once daily [Active]; lp1 - PMHx: 21:39 CHF; COPD; Hypertension; lp1 - PSHx: 21:42 Pacemaker/Defibrillator; Appendectomy; lp1 - Immunization history:: Adult Immunizations up to date. - Social history:: Smoking status: Patient/guardian denies using tobacco, never smoked. - Ebola Screening: : No symptoms or risks identified at this time No symptoms or risks identified at this time. Screenin:15 Abuse screen: Denies threats or abuse. Denies injuries from another. Nutritional lp1 screening: No deficits noted. Tuberculosis screening: No symptoms or risk factors identified. Fall Risk Total Penn Fall Scale indicates High Risk Score (45 or more points). Fall prevention measures have been instituted. Side Rails Up X 2 As available patient and family educated on Fall Prevention Program and Strategies. Assessment: 20:13 General: Appears ill, slender, Behavior is appropriate for age. Pain: Denies pain. lp1 Neuro: Level of Consciousness is awake, alert, obeys commands, Oriented to person, place, situation. Cardiovascular: Capillary refill < 3 seconds in bilateral fingers toes Patient's skin is warm and dry. Rhythm is atrial pacer. Respiratory: Reports cough that is productive, labored breathing Airway is patent Trachea midline Respiratory effort is even, labored, Respiratory pattern is tachypnea Breath sounds are diminished bilaterally. Onset: The symptoms/episode began/occurred gradually, the patient has moderate shortness of breath. GI: Abdomen is flat. : Reports burning with urination. EENT: No signs and/or symptoms were reported regarding the EENT system. Derm: Skin is fragile, is thin, Skin is dry, Skin is normal. Musculoskeletal: Circulation, motion, and sensation intact. 21:10 Reassessment: Patient continues tachypneic, BiPAP placed at this time, tolerating well. lp1 22:25 Reassessment: Patient returned from CT, tolerating Bipap Patient states feeling better. lp1 General: Appears in no apparent distress. Respiratory: Respiratory effort is even, labored. Derm: Skin is dry, Skin is normal. 23:24 Reassessment: Patient appears in no apparent distress at this time. Patient and/or lp1 family updated on plan of care and expected duration. Pain level reassessed. Patient states feeling better. Reassessment: Aware of pending admission per Provider. Neuro: Level of Consciousness is awake, alert, obeys commands. 03/21 00:00 Reassessment: Attempted to call report, nurse will call back. lp1 Vital Signs: 03/20 20:17 BP 140 / 82; Pulse 91; Resp 32; Temp 98.6(O); Pulse Ox 100% on 3 lpm NC; tl3 21:10 BP 111 / 70; Pulse 91; Resp 32; Pulse Ox 96% on 25% BiPAP; lp1 21:30 BP 108 / 75; Pulse 86; Resp 22; Pulse Ox 100% on 25% BiPAP; lp1 22:30 BP 105 / 68; Pulse 99; Resp 26; Pulse Ox 95% on 25% BiPAP; lp1 23:15 BP 119 / 73; Pulse 90; Resp 21; Pulse Ox 97% on 25% BiPAP; Weight 38.56 kg; lp1 21:10 14/6, RR 10, 25% O2 lp1 ED Course: 20:08 Patient arrived in ED. tl3 20:09 Jan Chan MD is Attending Physician. pkl 20:09 Chris Dupree MD is Private Physician. tl3 20:12 Triage completed. tl3 20:13 Danay Bhatia, BENITO is Primary Nurse. lp1 20:15 Patient has correct armband on for positive identification. Bed in low position. Call lp1 light in reach. Side rails up X2. emergency services professional on. Pulse ox on. NIBP on. 20:16 Arm band placed on left wrist. lp1 20:30 Inserted saline lock: 20 gauge in left antecubital area, using aseptic technique. Blood lp1 collected. 20:30 First set of blood cultures drawn by me. lp1 20:38 X-ray completed. Portable x-ray completed in exam room. Patient tolerated procedure ml well. 20:39 XRAY Chest (1 view) In Process Unspecified. EDMS 21:00 Second set of blood cultures drawn via 23-gauge butterfly needle in Right A/C. jp3 21:04 Notified ED physician of a critical lab result(s). D-Dimer 679 Dr Chan notified. bb 21:06 Blood Culture Adult (2) Sent. jp3 21:52 Radiology exam delayed due to patient receiving breathing treatment at this time. nj 22:[address] via stretcher. lp1 22:19 CT Chest For PE Angio In Process Unspecified. EDMS 23:19 Tushar Conley MD is Hospitalizing Provider. pkl 23:24 No provider procedures requiring assistance completed. lp1 23:50 Patient admitted, IV remains in place. lp1 Administered Medications: 21:37 Drug: Albuterol - atroVENT (3:1) (2.5 mg - 0.5 mg) 3 ml Route: Nebulizer; lp1 03/21 00:02 Follow up: Response: No adverse reaction lp1 03/20 23:23 Drug: SOLU-Medrol 125 mg Route: IVP; Site: left antecubital; lp1 03/21 00:02 Follow up: Response: No adverse reaction lp1 Outcome: 03/20 23:21 Decision to Hospitalize by Provider. pkl 23:50 Condition: stable lp1 23:50 Instructed on the need for admit. 03/21 00:09 Admitted to Tele accompanied by nurse, via stretcher, room 420, with oxygen, with lp1 chart, Report called to BENITO Tate 00:11 Patient left the ED. lp1 Signatures: Dispatcher [employer] EDIN Jan Chan MD MD pkl Tri Buitrago, RN RN Farheen Song Laura, RN RN lp1 Omar Johnson Tammy, RN RN tl3 Emerson Cortes jp3 Corrections: (The following items were deleted from the chart) 03/20 20:15 20:13 Respiratory: Airway is patent Trachea midline Respiratory effort is even, lp1 labored, Respiratory pattern is tachypnea Breath sounds are diminished bilaterally. lp1 20:16 20:13 Respiratory: Reports cough that is productive, labored breathing Airway is patent lp1 Trachea midline Respiratory effort is even, labored, Respiratory pattern is tachypnea Breath sounds are diminished bilaterally. lp1 20:17 20:13 Respiratory: Reports cough that is productive, labored breathing Airway is patent lp1 Trachea midline Respiratory effort is even, labored, Respiratory pattern is tachypnea Breath sounds are diminished bilaterally. the patient has moderate shortness of breath lp1
[2018-03-20] MEDS ORDERED: ACETAMINOPHEN 500 MG TAB PO PRN (23:25)
[2018-03-21 01:11] LABS: Urine Appearance CLEAR; Urine Bilirubin NEGATIVE (NEG); Urine Blood NEGATIVE (NEG); Urine Color YELLOW; Urine Glucose NEGATIVE (NEG); Urine Protein NEGATIVE (NEG); Urine Specific Gravity >=1.030 (1.005-1.030)
[2018-03-21] MEDS: METHYLPREDNISOLONE 40 MG INJ IV SCH ×3 (01:21→16:38)
[2018-03-21 01:25] LABS: Urine RBC NONE SEEN /HPF (NONE SEEN)
[2018-03-21 01:26] LABS: Urine Bacteria <20 /HPF (<20); Urine Culture Reflex Order NOT NEEDED
[2018-03-21 01:58] VITALS: BMI 16.9
[2018-03-21] MEDS: IPRATROPIUM BROM 0.5MG/2.5ML NEB PRN ×2 (04:14→14:46)
[2018-03-21] MEDS: ALBUTEROL 2.5 MG/3 ML NEB SOL NEB PRN ×2 (04:14→14:46)
[2018-03-21 04:51] LABS: Absolute Lymphocytes (CBC) 0.4 K/uL (0.7-4.9); Absolute Monocytes 0.3 K/uL (0.1-1.3); Absolute Neutrophil 11.1 K/uL (1.8-8.0); Basophils % 0.3 % (0-1.3); Eosinophils % 0.3 % (0-4.4); Hematocrit 35.3 % (36.0-45.0); Lymphocytes % 3.3 % (15.3-44.8); MCH 30.4 pg (27.0-35.0); MCV 92.2 fL (80-100); MPV 7.8 fL (7.6-11.3); Monocytes % 2.4 % (3.3-12.3); RBC Red Blood Cell Count 3.83 M/uL (3.86-4.86)
[2018-03-21 05:03] LABS: BUN Blood Urea Nitrogen 23 mg/dL (7-18); Bicarbonate 37 mmol/L (21-32); Glucose Level 185 mg/dL (74-106); NT PRO-BNP 369 pg/mL (<125); Potassium 3.5 mmol/L (3.5-5.1); Sodium Level 138 mmol/L (136-145)
[2018-03-21 05:13] LABS: Blood Morphology Comment NOT SEEN (NOT SEEN); Platelet Estimate ADEQ; Urine White Blood Cell Casts OK
--- NOTE | 2018-03-21 08:19 | RAD REPORT ---
EXAM DESCRIPTION: CT - Chest For Pe Angio - 03/21/2018 5:39 am CLINICAL HISTORY: Chest pain. Cough;Dyspnea COMPARISON: Chest For Pe Angio dated 09/20/2017 TECHNIQUE: CT angiogram of the pulmonary arteries was performed with MIP. All CT scans are performed using dose optimization technique as appropriate and may include automated exposure control or mA/KV adjustment according to patient size. FINDINGS: No evidence of pulmonary thromboembolism. No acute aortic finding demonstrated. Severe COPD. No significant pericardial or pleural fluid. Multilevel wedging of the thoracic spine is present. Deformity of the inferior sternum is seen, possi courtney related to prior fracture since the prior study or prominent artifact. Correlation with clinical point tenderness in this region is advised. IMPRESSION: No evidence of pulmonary thromboembolism. Severe COPD. Questionable inferior sternum findings as detailed.
[2018-03-21] MEDS ORDERED: ASPIRIN EC 81 MG TAB PO SCH ×2 (09:00)
[2018-03-21] MEDS ORDERED: FUROSEMIDE 20 MG TABLET PO SCH (09:00)
[2018-03-21] MEDS: ALPRAZOLAM 0.25 MG TABLET PO PRN ×2 (09:05→20:42)
[2018-03-21] MEDS: CLOPIDOGREL 75 MG TABLET PO SCH (09:06)
[2018-03-21] MEDS: CARVEDILOL 3.125 MG TAB PO SCH ×2 (09:06→20:42)
[2018-03-21] MEDS: acetaZOLAMIDE 250 MG TAB PO SCH (09:06)
[2018-03-21] MEDS: ASPIRIN EC 81 MG TAB PO SCH (09:07)
[2018-03-21] MEDS: levoFLOXacin 500 MG TAB PO SCH (09:07)
[2018-03-21] MEDS: FUROSEMIDE 40 MG TABLET PO SCH (09:07)
[2018-03-21] MEDS: SACUBITRIL/VALSARTAN 24/26 MG TAB PO SCH ×2 (10:04→20:43)
--- NOTE | 2018-03-21 12:21 | EKG ---
Test Date: 2018-03-20 Test Time: 21:09:54 Charge Entry Clerk: DARLINE MEASUREMENT RESULTS: Intervals: Rate: 95 KS: 104 QRSD: 98 QT: 386 QTc: 485 [place]: P: 90 KS: 104 QRS: 94 T: 69 INTERPRETIVE STATEMENTS: Electronic ventricular pacemaker Compared to ECG 11/11/2017 10:10:34 Atrial-sensed ventricular-paced complex(es) or rhythm no longer present Electronically Signed On 03-21-18 12:19:09 CDT by Petar Huizar
[2018-03-21] MEDS: ENSURE ENLIVE 237 ML CAN PO SCH (20:41)
[2018-03-22] MEDS: METHYLPREDNISOLONE 40 MG INJ IV SCH ×3 (01:23→17:34)
--- NOTE | 2018-03-22 03:59 | HP ---
Date of Admission: 03/20/2018 Chief Complaint: Dyspnea. History Of Present Illness: A 67-year-old female who is known to have severe COPD as well as congest curt heart failure, who had multiple admissions in the past, was brought to the emergency room because of dyspnea and wheezing. The patient had evaluation done including CT chest. The patient is admitt ed with a diagnosis of COPD exacerbation. The patient denies any chest pain. No history of fever, c hills, or rigors. Past Medical History: Positive for COPD, hypertension, congestive heart failure. Past Surgical History: Positive for appendix surgery and implantation of permanent pacemaker. Review of Systems: No history of chest pain, fever, chills, rigors. Physical Examination: General: Revealed a 67-year-old female, thin looking with audible wheezing. Vital Signs: Normal. HEENT: Negative. Neck: Supple. JVD negative. Chest: Bilateral wheezes. Heart: Irregularity noted. Abdomen: Soft. Extremities: No edema. Laboratory: White count normal. Chem profile: BUN 20, BNP 448. Procalcitonin normal. Chest x-ray, evidence of COPD. CAT scan of the chest, no PE. Assessment: 1.Chronic obstructive pulmonary disease exacerbation. 2.Chronic obstructive pulmonary disease. 3.Congestive heart failure. 4.Prominent pacemaker status. Plan: The patient is receiving IV steroids and Levaquin. The patient will be restarted on her regul ar medications and she will be re-evaluated in a.m. RAMIRO/KARLOS Voice ID: [id number]
[2018-03-22] MEDS: ALBUTEROL 2.5 MG/3 ML NEB SOL NEB PRN (07:31)
[2018-03-22] MEDS: IPRATROPIUM BROM 0.5MG/2.5ML NEB PRN (07:31)
[2018-03-22] MEDS: CLOPIDOGREL 75 MG TABLET PO SCH (08:59)
[2018-03-22] MEDS: acetaZOLAMIDE 250 MG TAB PO SCH (08:59)
[2018-03-22] MEDS: levoFLOXacin 500 MG TAB PO SCH (08:59)
[2018-03-22] MEDS: FUROSEMIDE 40 MG TABLET PO SCH (09:00)
[2018-03-22] MEDS: CARVEDILOL 3.125 MG TAB PO SCH ×2 (09:00→20:49)
[2018-03-22] MEDS: SACUBITRIL/VALSARTAN 24/26 MG TAB PO SCH ×2 (09:01→20:49)
[2018-03-22] MEDS: ENSURE ENLIVE 237 ML CAN PO SCH ×2 (09:02→20:49)
[2018-03-22] MEDS: ALPRAZOLAM 0.25 MG TABLET PO PRN ×2 (09:04→19:40)
[2018-03-23] MEDS: METHYLPREDNISOLONE 40 MG INJ IV SCH ×3 (00:44→17:00)
--- NOTE | 2018-03-23 02:42 | PN ---
The patient has mild decrease in wheezing. Her O2 saturation on 2-3 L is still around 76. The patie nt will be continued on the IV steroids, probably she will change to oral steroids tomorrow. RAMIRO/KARLOS Voice ID: [id number] Report ID: [id number]
[2018-03-23] MEDS: ALPRAZOLAM 0.25 MG TABLET PO PRN ×2 (07:26→18:44)
[2018-03-23] MEDS: CARVEDILOL 3.125 MG TAB PO SCH ×2 (08:26→21:06)
[2018-03-23] MEDS: acetaZOLAMIDE 250 MG TAB PO SCH (08:26)
[2018-03-23] MEDS: CLOPIDOGREL 75 MG TABLET PO SCH (08:27)
[2018-03-23] MEDS: FUROSEMIDE 40 MG TABLET PO SCH (08:27)
[2018-03-23] MEDS: SACUBITRIL/VALSARTAN 24/26 MG TAB PO SCH ×2 (08:28→21:06)
[2018-03-23] MEDS: levoFLOXacin 500 MG TAB PO SCH (08:28)
[2018-03-23] MEDS: ASPIRIN EC 81 MG TAB PO SCH (08:28)
[2018-03-23] MEDS: ENSURE ENLIVE 237 ML CAN PO SCH ×2 (08:29→21:00)
[2018-03-23] MEDS: predniSONE 20 MG TAB PO SCH (21:06)
[2018-03-24 00:23] VITALS: O2SAT 93
--- NOTE | 2018-03-24 00:48 | PN ---
The patient is doing much better today. Her O2 saturation was in 90s on 2 to 3 L. I changed her adalberto roids to p.o.; and if she looks stable, she will be discharged home tomorrow morning. RAMIRO/KARLOS Voice ID: [id number] Report ID: [id number]
[2018-03-24] MEDS: ALPRAZOLAM 0.25 MG TABLET PO PRN (06:59)
[2018-03-24] MEDS: ENSURE ENLIVE 237 ML CAN PO SCH (09:00)
[2018-03-24] MEDS: FUROSEMIDE 40 MG TABLET PO SCH (09:44)
[2018-03-24] MEDS: predniSONE 20 MG TAB PO SCH (09:45)
[2018-03-24] MEDS: levoFLOXacin 500 MG TAB PO SCH (09:45)
[2018-03-24] MEDS: CARVEDILOL 3.125 MG TAB PO SCH (09:45)
[2018-03-24] MEDS: CLOPIDOGREL 75 MG TABLET PO SCH (09:45)
[2018-03-24] MEDS: acetaZOLAMIDE 250 MG TAB PO SCH (09:45)
[2018-03-24] MEDS: SACUBITRIL/VALSARTAN 24/26 MG TAB PO SCH (09:46)
[2018-03-24 14:24] VITALS: BP 134/82; TEMP 97
== END 2018-03-24 12:27 | disposition home or self-care (01) | DRG 192 ==
LOC: ER 20:03 → ERHOLD 23:22 → 4TH 03-21 00:08 → OBSVTOIN 03-22 21:14
PROVIDERS: ADMIT Internal Medicine; ATTEND Internal Medicine
PROC: 5A09357 Assistance with Respiratory Ventilation, Less than 24 Consecutive Hours, Continuous Positive Airway Pressure (ICD-10-PCS; principal; 2018-03-23)
DX: J44.1 Chronic obstructive pulmonary disease with (acute) exacerbation (principal); I11.0 Hypertensive heart disease with heart failure; I50.9 Heart failure, unspecified; Z95.0 Presence of cardiac pacemaker; Z88.5 Allergy status to narcotic agent; Z88.0 Allergy status to penicillin; Z99.81 Dependence on supplemental oxygen; Z95.810 Presence of automatic (implantable) cardiac defibrillator
CPT/HCPCS: 36415; 71045; 71275; 80048; 80076; 81001; 82550; 82553; 82805; 83605; 83735; 83880; 84145; 84484; 85025; 85379; 85610; 85730; 87040; 93005; 94640; 94660; 94760; 96374; 99285; G0378; J2920; J2930; J7512; Q9967

== ENCOUNTER 2018-08-10 11:30 | Inpatient (IN) | payer OTHER ==
--- OUTSIDE RECORDS SUMMARY | 2018-08-10 11:35 | XMS REPORT | Clinical Summary ---
:1950 Author Organization [facility] Address [address] [place] [address] Care Team Providers Name Role Phone Tushar Melendez MD Primary Care Provider Allergies Active Allergy Reactions Severity Noted Date Comments Codeine Hives, Swelling 07/07/2016 Morphine Other (See Comments) 07/07/2016 Hallucinations Penicillins Hives, Swelling 07/07/2016 Medications Medication Sig Dispensed Refills Start Date End Date Status ALPRAZolam (XANAX) 0.25 Take 0.25 mg by 0 06/21/2016 Active MG tablet mouth 2 (two) times a day. acetaZOLAMIDE (DIAMOX) Take 125 mg by 0 06/17/2016 Active 250 MG tablet mouth daily. carvedilol (COREG) 3.125 Take 3.125 mg by 0 06/12/2016 Active MG tablet mouth 2 (two) times a day with meals. clopidogrel (PLAVIX) 75 Take 75 mg by 0 06/12/2016 Active mg tablet mouth daily. furosemide (LASIX) 40 mg Take 40 mg by 0 06/12/2016 Active tablet mouth daily. predniSONE (DELTASONE) Take 10 mg by 0 06/21/2016 Active 10 mg tablet mouth 2 (two) times a day. ibandronate (BONIVA) 150 Take 150 mg by 0 06/25/2016 Active mg tablet mouth every 30 (thirty) days. sacubitril-valsartan Take 1 tablet by 0 Active (ENTRESTO) 24-26 mg mouth daily. tablet per tablet calcium Take 1 tablet by 0 Active carbonate-vitamin D3 500 mouth daily. mg-200 unit per tablet Active Problems Problem Noted Date HTN [...] Assigned at Date Recorded Not on file Job Start Date Occupation Industry Not on file Not on file Not on file Travel History Travel Start Travel End No recent travel history available. Last Filed Vital Signs Not on file Plan of Treatment Health Maintenance Due Date Last Done Comments BREAST CANCER SCREENING 1998 COLON CANCER SCREENING 1998 SHINGLES VACCINES (1 of 2) 1998 PNEUMOCOCCAL POLYSACCHARIDE VACCINE AGE 65 AND OVER 2013 PNEUMOCOCCAL-13 2013 INFLUENZA VACCINE 02/15/2018 Implants Implanted Type Area Child Care Sitter Device Shelf Model / Identifier Expiration Serial / Date Lot [employer]otak [place] G Model 0295 59 Cm Df4 Tachy Lead - [id number] Cardiac Pacing N/A: [place] 06/07/2018 0295 / Implanted: 07/07/2016 (Quantity not on file) Leads or N/A P[employer]ree [id number] / Electrodes or [id number] Accessories Acuity X 4 - [id number] Cardiac Pacing N/A: [place] 11/23/2017 4671 / Implanted: 07/07/2016 (Quantity not on file) Leads or N/A P[employer] [id number] / Electrodes or [id number] Accessories Ingevity Mri Pacing Lead 45cm - [id number] Cardiac Pacing N/A: [place] 7740 45 / Implanted: 07/07/2016 (Quantity not on file) Leads or N/A Podotree [id number] / Electrodes or [id number] Accessories Generator Powerplant Operator-D Inogen X4 Df4 - [id number] Defibrillator N/A: [place] 03/26 [id number] / Implanted: 07/07/2016 (Quantity not on file) ICD Devices N/A [employer] CRM [id number] / [id number] Results Not on fileafter 08/09/2017 Insurance Payer Benefit Plan / Group Subscriber ID Type Phone Address MEDICARE MEDICARE PART A AND B xxxxxxxxxx Medicare [place], [place] Advance Directives Patient has advance care planning documents on file. For more information, please contact:Mauro [id number] [place] [address]
[2018-08-10 12:30] LABS: Absolute Monocytes 0.9 K/uL (0.1-1.3); Absolute Neutrophil 9.9 K/uL (1.8-8.0); Basophils % 0.7 % (0-1.3); Eosinophils % 1.3 % (0-4.4); Hematocrit 41.6 % (36.0-45.0); Lymphocytes % 8.3 % (15.3-44.8); Monocytes % 7.4 % (3.3-12.3); RBC Red Blood Cell Count 4.42 M/uL (3.86-4.86)
[2018-08-10] MEDS ORDERED: IPRATROPIUM BROM 0.5MG/2.5ML ONE (12:30)
[2018-08-10] MEDS ORDERED: predniSONE 20 MG TAB ONE (12:30)
[2018-08-10] MEDS ORDERED: ALBUTEROL 2.5 MG/3 ML NEB SOL ONE (12:30)
--- NOTE | 2018-08-10 12:35 | RAD REPORT ---
EXAM DESCRIPTION: RAD - Chest Single View - 08/10/2018 12:28 pm CLINICAL HISTORY: SOB Chest pain. COMPARISON: Chest Single View dated 03/20/2018; Chest Single View dated 11/11/2017; Chest Single View d ated 09/20/2017; Chest Single View dated 07/07/2017; Chest For Pe Angio dated 03/20/2018 FINDINGS: Portable technique limits examination quality. The lungs are grossly clear. Tortuous and atherosclerotic thoracic aorta is seen. The heart is upper limit of normal in size with multilead pacer/defibrillator device present. No displaced fractures. IMPRESSION: COPD.
[2018-08-10 13:11] LABS: Protime INR 0.91
[2018-08-10 13:27] LABS: Arterial Blood Carboxyhemoglob 1.6 % (0-1.5); Blood Gas Oxyhemoglobin 95.8 % (94-97); Blood O2 Saturation 98.6 % (92-98.5)
[2018-08-10 13:31] LABS: ALT/SGPT 20 U/L (12-78); AST/SGOT 21 U/L (15-37); Albumin 3.3 g/dL (3.4-5.0); Alkaline Phosphatase 71 U/L (45-117); BUN Blood Urea Nitrogen 21 mg/dL (7-18); Bicarbonate 39 mmol/L (21-32); Bilirubin Direct 0.1 mg/dL (0-0.2); Bilirubin Total 0.4 mg/dL (0.2-1.0); Glucose Level 180 mg/dL (74-106); Magnesium 2.3 mg/dL (1.8-2.4); NT PRO-BNP 512 pg/mL (<125); Potassium 4.4 mmol/L (3.5-5.1); Protein, Total 6.7 g/dL (6.4-8.2); Sodium Level 139 mmol/L (136-145); Troponin (Emerg Dept Use Only) < 0.02 ng/mL (0.0-0.045)
--- NOTE | 2018-08-10 14:18 | ER ---
Nurse's Notes [facility] Name: Jeannette Wing Age: 67 yrs Sex: Female : 1950 Arrival Date: 08/10/2018 Time: 11:34 Bed 3 Private MD: Diagnosis: Chronic obstructive pulmonary disease with (acute) exacerbation Presentation: 08/10 11:34 Presenting complaint: Patient states: Hx of COPD with worsening SOB over the last 4-5 aa5 days ago. Pt reports productive cough. Pt states "everybody has an upper respiratory infection at my house". Pt c/o back pain and neck pain x 3 days ago that began "after I tried to move a table". Transition of care: patient was not received from another setting of care. Onset of symptoms was July 2018. Risk Assessment: Do you want to hurt yourself or someone else? Patient reports no desire to harm self or others. Care prior to arrival: Oxygen administered. via nasal cannula. 11:34 Method Of Arrival: EMS: [facility] aa5 11:34 Acuity: RON 3 aa5 11:35 Initial Sepsis Screen: Does the patient meet any 2 criteria? RR > 20 per min. Does the aa5 patient have a suspected source of infection? No. Patient's initial sepsis screen is negative. Historical: - Allergies: 11:35 Morphine; aa5 11:35 PENICILLINS; aa5 - PMHx: 11:35 CHF; COPD; Hypertension; aa5 - PSHx: 11:35 Pacemaker/Defibrillator; Appendectomy; aa5 - Immunization history:: Adult Immunizations not up to date. - Ebola Screening: : No symptoms or risks identified at this time. - Social history:: Smoking status: Patient uses tobacco products, smokes one-half pack cigarettes per day. Screenin:10 Abuse screen: Denies threats or abuse. Denies injuries from another. Nutritional ca1 screening: No deficits noted. Tuberculosis screening: No symptoms or risk factors identified. Fall Risk None identified. Assessment: 12:10 General: Appears in no apparent distress. uncomfortable, ill, Behavior is cooperative, ca1 anxious. Pain: Complains of pain in chest Pain does not radiate. Pain currently is 9 out of 10 on a pain scale. Neuro: Level of Consciousness is awake, alert, obeys commands, Oriented to person, place, time, situation. Cardiovascular: Heart tones S1 S2 present Capillary refill is > 3 seconds Rhythm is paced. Respiratory: Airway is patent Trachea midline. Respiratory: Respiratory effort is even, labored, Respiratory pattern is hyperventilation Breath sounds with wheezes bilaterally. GI: Abdomen is flat, Bowel sounds present X 4 quads. Abd is soft and non tender X 4 quads. : No signs and/or symptoms were reported regarding the genitourinary system. EENT: No signs and/or symptoms were reported regarding the EENT system. Derm: Skin is intact, Skin is dry, Skin is pale, Skin temperature is cool. Musculoskeletal: Circulation, motion, and sensation intact. 12:50 Reassessment: Patient and/or family updated on plan of care and expected duration. Pain ca1 level reassessed. Wheezing diminished bilaterally. Pt tachypneic, SOB increased. PRODUCTION RECORDER notified. 13:00 Reassessment: Patient will be placed on Bipap per PRODUCTION RECORDER. RT in room for BiPAP. ca1 13:30 Reassessment: Pt tolerated Bipap well. SOB improved. Pt states feeling better. ca1 Respirations even and unlabored. Skin pink, warm and dry. 14:25 Reassessment: Patient appears in no apparent distress at this time. Patient and/or ca1 family updated on plan of care and expected duration. Pain level reassessed. Patient is alert, oriented x 3, equal unlabored respirations, skin warm/dry/pink. 15:25 Reassessment: Patient appears in no apparent distress at this time. Patient is alert, ca1 oriented x 3, equal unlabored respirations, skin warm/dry/pink. 16:40 Reassessment: Patient is alert, oriented x 3, equal unlabored respirations, skin ca1 warm/dry/pink. 17:50 Reassessment: Patient appears in no apparent distress at this time. Called 2nd floor ca1 for report. Nurse will call back, room is still being cleaned. Vital Signs: 11:35 BP 150 / 75; Pulse 87; Resp 24 S; Temp 98.4(O); Pulse Ox 100% on 2 lpm NC; Weight 44.91 ca1 kg; Height 4 ft. 11 in. (149.86 cm); 12:41 BP 185 / 106; Pulse 105; Resp 36; Pulse Ox 95% on 2 lpm NC; ca1 13:00 BP 175 / 95; Pulse 100; Resp 39; Pulse Ox 99% on 2 lpm NC; ca1 13:45 BP 143 / 66; Pulse 91; Resp 33; Pulse Ox 100% on BiPAP; ca1 14:30 BP 94 / 63; Pulse 87; Resp 28; Pulse Ox 100% on BiPAP; ca1 15:15 BP 107 / 66; Pulse 87; Resp 28; Pulse Ox 100% on BiPAP; ca1 16:00 BP 107 / 69; Pulse 102; Resp 25; Pulse Ox 100% on BiPAP; ca1 16:45 BP 118 / 64; Pulse 92; Resp 23; Pulse Ox 100% on BiPAP; ca1 17:30 BP 118 / 74; Pulse 93; Resp 21; Pulse Ox 100% on BiPAP; ca1 19:31 BP 124 / 73; Pulse 91; Resp 27; Pulse Ox 99% on CPAP; ak1 11:35 Body Mass Index 20.00 (44.91 kg, 149.86 cm) ca1 ED Course: 11:34 Patient arrived in ED. aa5 11:34 Arm band placed on. aa5 11:35 Ankur Moser NP is PHCP. pm1 11:35 Delonte Medina MD is Attending Physician. pm1 11:36 Triage completed. aa5 11:54 Najma Schmidt, BENITO is Primary Nurse. ca1 12:10 Patient has correct armband on for positive identification. Placed in gown. Bed in low ca1 position. Call light in reach. Side rails up X2. lunchroom monitor on. Pulse ox on. NIBP on. Warm blanket given. 12:15 Inserted saline lock: 20 gauge in left antecubital area, using aseptic technique. Blood ca1 collected. 12:15 First set of blood cultures drawn by me. ca1 12:23 X-ray completed. Portable x-ray completed in exam room. Patient tolerated procedure jb2 well. 12:26 XRAY Chest (1 view) In Process Unspecified. EDMS 13:00 Flu and/or RSV swab sent to lab. dh3 13:00 Second set of blood cultures drawn by me. Lab(s) recollected, by me, sent to lab. ca1 13:21 EKG done, by technical intern. reviewed by Ankur Moser NP. at1 14:16 Tushar Conley MD is Hospitalizing Provider. pm1 17:56 No provider procedures requiring assistance completed. Patient admitted, IV remains in ca1 place. Administered Medications: 12:18 Drug: Albuterol - atroVENT (3:1) (2.5 mg - 0.5 mg) 3 ml Route: Nebulizer; ca1 15:34 Follow up: Response: No adverse reaction; Wheezing diminished ca1 12:20 Drug: predniSONE 60 mg Route: PO; ca1 15:33 Follow up: Response: No adverse reaction; Wheezing diminished ca1 15:20 Drug: LevaQUIN 500 mg Volume: 100 ml; Route: IVPB; Infused Over: 60 mins; Site: left ca1 antecubital; 16:20 Follow up: Response: No adverse reaction; IV Status: Completed infusion ca1 Outcome: 14:17 Decision to Hospitalize by Provider. pm1 19:33 Admitted to Med/surg accompanied by tech, family with patient, via stretcher, room 207, ak1 with oxygen, with chart, Report called to Ronnie OLIVER 19:33 Condition: improved 19:33 Instructed on the need for admit. 19:52 Patient left the ED. ak1 Signatures: Dispatcher [employer] EDMS Gurdeep Melton Audri, RN RN aa5 Vicki Viera, labor relations supervisor EKG Tat1 Geovanna Hidalgo RN RN ak1 Ankur Moser, PRODUCTION RECORDER PRODUCTION RECORDER pm1 Tamra Chen 3 Najma Schmidt RN RN ca1 Corrections: (The following items were deleted from the chart) 18:04 11:35 BP 150 / 75; Pulse 87bpm; Resp 24bpm; Spontaneous; Pulse Ox 100% 2 lpm Nasal ca1 Cannula; Temp 98.4F Oral; aa5 18:05 16:40 Reassessment: Patient is alert, oriented x 3, equal unlabored respirations, skin ca1 warm/dry/pink. ca1
--- NOTE | 2018-08-10 14:18 | EDPHYS ---
Physician Documentation [facility] Name: Jeannette Wing Age: 67 yrs Sex: Female : 1950 Arrival Date: 08/10/2018 Time: 11:34 Bed 3 Private MD: ED Physician Delonte Medina HPI: 08/10 12:00 This 67 yrs old Female presents to ER via EMS with complaints of Shortness Of pm1 Breath. 12:00 The patient has shortness of breath at rest. Onset: The symptoms/episode began/occurred pm1 4 day(s) ago. Duration: The symptoms are continuous, and are steadily getting worse. The patient's shortness of breath is aggravated by nothing, is alleviated by nothing. Associated signs and symptoms: Pertinent positives: non-productive cough, Pertinent negatives: chest pain, diaphoresis, dizziness, fever, nausea, vomiting. Severity of symptoms: in the emergency department the symptoms are worse. The patient has experienced similar episodes in the past, multiple times. The patient has not recently seen a physician, the patient's primary care provider is Dr. Conley. Historical: - Allergies: 11:35 Morphine; aa5 11:35 PENICILLINS; aa5 - PMHx: 11:35 CHF; COPD; Hypertension; aa5 - PSHx: 11:35 Pacemaker/Defibrillator; Appendectomy; aa5 - Immunization history:: Adult Immunizations not up to date. - Ebola Screening: : No symptoms or risks identified at this time. - Social history:: Smoking status: Patient uses tobacco products, smokes one-half pack cigarettes per day. ROS: 12:00 Constitutional: Negative for fever, chills, and weight loss, Eyes: Negative for injury, pm1 pain, redness, and discharge, ENT: Negative for injury, pain, and discharge, Neck: Negative for injury, pain, and swelling, Cardiovascular: Negative for chest pain, palpitations, and edema. 12:00 Abdomen/GI: Negative for abdominal pain, nausea, vomiting, diarrhea, and constipation, Back: Negative for injury and pain, : Negative for injury, bleeding, discharge, and swelling, MS/Extremity: Negative for injury and deformity, Skin: Negative for injury, rash, and discoloration, Neuro: Negative for headache, weakness, numbness, tingling, and seizure. 12:00 Respiratory: Positive for cough, shortness of breath. Exam: 12:00 Head/Face: Normocephalic, atraumatic. Eyes: Pupils equal round and reactive to light, pm1 extra-ocular motions intact. Lids and lashes normal. Conjunctiva and sclera are non-icteric and not injected. Cornea within normal limits. Periorbital areas with no swelling, redness, or edema. ENT: Nares patent. No nasal discharge, no septal abnormalities noted. Tympanic membranes are normal and external auditory canals are clear. Oropharynx with no redness, swelling, or masses, exudates, or evidence of obstruction, uvula midline. Mucous membranes moist. Neck: Trachea midline, no thyromegaly or masses palpated, and no cervical lymphadenopathy. Supple, full range of motion without nuchal rigidity, or vertebral point tenderness. No Meningismus. Chest/axilla: Normal chest wall appearance and motion. Nontender with no deformity. No lesions are appreciated. Cardiovascular: Regular rate and rhythm with a normal S1 and S2. No gallops, murmurs, or rubs. Normal PMI, no JVD. No pulse deficits. 12:00 Abdomen/GI: Soft, non-tender, with normal bowel sounds. No distension or tympany. No guarding or rebound. No evidence of tenderness throughout. Back: No spinal tenderness. No costovertebral tenderness. Full range of motion. Skin: Warm, dry with normal turgor. Normal color with no rashes, no lesions, and no evidence of cellulitis. MS/ Extremity: Pulses equal, no cyanosis. Neurovascular intact. Full, normal range of motion. 12:00 Constitutional: The patient appears alert, awake, non-diaphoretic, non-toxic, well groomed, frail. 12:00 Respiratory: mild respiratory distress is noted, Respirations: tachypnea, Breath sounds: wheezing: is heard diffusely. 12:00 Neuro: Orientation: is normal, Motor: is normal, moves all fours. Vital Signs: 11:35 BP 150 / 75; Pulse 87; Resp 24 S; Temp 98.4(O); Pulse Ox 100% on 2 lpm NC; Weight 44.91 ca1 kg; Height 4 ft. 11 in. (149.86 cm); 12:41 BP 185 / 106; Pulse 105; Resp 36; Pulse Ox 95% on 2 lpm NC; ca1 13:00 BP 175 / 95; Pulse 100; Resp 39; Pulse Ox 99% on 2 lpm NC; ca1 13:45 BP 143 / 66; Pulse 91; Resp 33; Pulse Ox 100% on BiPAP; ca1 14:30 BP 94 / 63; Pulse 87; Resp 28; Pulse Ox 100% on BiPAP; ca1 15:15 BP 107 / 66; Pulse 87; Resp 28; Pulse Ox 100% on BiPAP; ca1 16:00 BP 107 / 69; Pulse 102; Resp 25; Pulse Ox 100% on BiPAP; ca1 16:45 BP 118 / 64; Pulse 92; Resp 23; Pulse Ox 100% on BiPAP; ca1 17:30 BP 118 / 74; Pulse 93; Resp 21; Pulse Ox 100% on BiPAP; ca1 19:31 BP 124 / 73; Pulse 91; Resp 27; Pulse Ox 99% on CPAP; ak1 11:35 Body Mass Index 20.00 (44.91 kg, 149.86 cm) ca1 MDM: 11:38 Patient medically screened. pm1 13:15 ED course: Patient's breath sounds improved with breathing treatment but patient pm1 reports increased shortness of breath and tachypnea. ABG ordered. 13:47 Data reviewed: vital signs. pm1 13:49 Counseling: I had a detailed discussion with the patient and/or guardian regarding: the pm1 historical points, exam findings, and any diagnostic results supporting the discharge/admit diagnosis, lab results, radiology results, the need for further work-up and treatment in the hospital. 14:16 Physician consultation: Tushar Conley MD was called at 14:16, was contacted at 14:16, pm1 regarding admission, patient's condition, BIPAP, IV antibiotics, and steroids. 08/10 11:40 Order name: Basic Metabolic Panel; Complete Time: 13:34 pm08/10 11:40 Order name: CBC with Diff; Complete Time: 12:43 pm1 08/10 11:40 Order name: LFT's; Complete Time: 13:34 pm08/10 11:40 Order name: Magnesium; Complete Time: 13:34 pm08/10 11:40 Order name: NT PRO-BNP; Complete Time: 13:34 pm08/10 11:40 Order name: PT-INR; Complete Time: 13:34 pm08/10 11:40 Order name: Troponin (emerg Dept Use Only); Complete Time: 13:34 08/10 11:40 Order name: XRAY Chest (1 view); Complete Time: 12:43 08/10 11:40 Order name: Procalcitonin; Complete Time: 13:50 08/10 11:40 Order name: Lactate; Complete Time: 12:49 08/10 11:40 Order name: Blood Culture Adult (2) 08/10 11:40 Order name: Flu; Complete Time: 13:34 08/10 13:11 Order name: ABG; Complete Time: 14:07 08/10 13:31 Order name: BIPAP 08/10 11:40 Order name: EKG; Complete Time: 11:42 08/10 11:40 Order name: Cardiac monitoring; Complete Time: 11:54 08/10 11:40 Order name: EKG - Nurse/Tech; Complete Time: 13:29 08/10 11:40 Order name: IV Saline Lock; Complete Time: 12:58 08/10 11:40 Order name: Labs collected and sent; Complete Time: 12:58 08/10 11:40 Order name: O2 Per Protocol; Complete Time: 12:58 08/10 11:40 Order name: O2 Sat Monitoring; Complete Time: 12:58 pm1 Administered Medications: 12:18 Drug: Albuterol - atroVENT (3:1) (2.5 mg - 0.5 mg) 3 ml Route: Nebulizer; ca1 15:34 Follow up: Response: No adverse reaction; Wheezing diminished ca1 12:20 Drug: predniSONE 60 mg Route: PO; ca1 15:33 Follow up: Response: No adverse reaction; Wheezing diminished ca1 15:20 Drug: LevaQUIN 500 mg Volume: 100 ml; Route: IVPB; Infused Over: 60 mins; Site: left ca1 antecubital; 16:20 Follow up: Response: No adverse reaction; IV Status: Completed infusion ca1 Disposition: 08/10/18 14:17 Hospitalization ordered by Tushar Conley for Inpatient Admission. Preliminary diagnosis is Chronic obstructive pulmonary disease with (acute) exacerbation. - Bed requested for Telemetry/MedSurg (Inpatient). - Status is Inpatient Admission. ak1 - Condition is Stable. - Problem is new. - Symptoms have improved. UTI on Admission? No Addendum: 08/17/2018 08:55 Co-signature as Attending Physician, Delonte Medina MD I agree with the assessment and k dr plan of care. Signatures: Dispatcher [employer] EDAL Delonte Medina MD MD kdr Theresa Esquivel, RN RN aa5 Geovanna Hidalgo RN RN ak1 Ankur Moser, PHYSICAL THERAPY SUPERVISOR PHYSICAL THERAPY SUPERVISOR pm1 Marine Chambers eb Najma Schmidt RN RN ca1 Corrections: (The following items were deleted from the chart) 08/10 14:18 14:17 Hospitalization Ordered by Tushar Conley MD for Inpatient Admission. Preliminary pm1 diagnosis is Chronic obstructive pulmonary disease with (acute) exacerbation. Bed requested for Telemetry/MedSurg (Inpatient). Status is Inpatient Admission. Condition is Stable. Problem is new. Symptoms have improved. UTI on Admission? No. pm1 14:19 14:18 08/10/2018 14:17 Hospitalization Ordered by Tushar Conley MD for Observation. pm1 Preliminary diagnosis is Chronic obstructive pulmonary disease with (acute) exacerbation. Bed requested for Telemetry/MedSurg (observation). Status is Observation. Condition is Stable. Problem is new. Symptoms have improved. UTI on Admission? No. pm1 17:21 14:19 08/10/2018 14:17 Hospitalization Ordered by Tushar Conley MD for Inpatient eb Admission. Preliminary diagnosis is Chronic obstructive pulmonary disease with (acute) exacerbation. Bed requested for Telemetry/MedSurg (Inpatient). Status is Inpatient Admission. Condition is Stable. Problem is new. Symptoms have improved. UTI on Admission? No. pm1 19:52 17:21 08/10/2018 14:17 Hospitalization Ordered by Tushar Conley MD for Inpatient ak1 Admission. Preliminary diagnosis is Chronic obstructive pulmonary disease with (acute) exacerbation. Bed requested for Telemetry/MedSurg (Inpatient). Status is Inpatient Admission. Condition is Stable. Problem is new. Symptoms have improved. UTI on Admission? No. eb
[2018-08-10] MEDS ORDERED: Levofloxacin500mg IV 500 MG/100 ML BAG IV ONE (15:33)
--- NOTE | 2018-08-10 16:49 | EKG ---
Test Date: 2018-08-10 Test Time: 13:01:28 Loader Operator: JOJO MEASUREMENT RESULTS: Intervals: Rate: 98 MI: 104 QRSD: 102 QT: 360 QTc: 459 [place]: P: 64 MI: 104 QRS: 75 T: 47 INTERPRETIVE STATEMENTS: Atrial-sensed ventricular-paced rhythm Biventricular pacemaker detected Abnormal ECG Compared to ECG 03/20/2018 21:09:54 No significant changes Electronically Signed On 08-10-18 16:48:22 STENOGRAPHER SECRETARY by Petar Huizar
[2018-08-10] MEDS ORDERED: ACETAMINOPHEN 500 MG TAB PO PRN (20:41)
[2018-08-10] MEDS: METHYLPREDNISOLONE 40 MG INJ IV SCH (22:15)
[2018-08-10] MEDS: CARVEDILOL 3.125 MG TAB PO SCH (22:15)
[2018-08-10] MEDS: SACUBITRIL/VALSARTAN 24/26 MG TAB PO SCH (22:15)
[2018-08-10] MEDS: ALPRAZOLAM 0.25 MG TABLET PO PRN (22:15)
[2018-08-11] MEDS: METHYLPREDNISOLONE 40 MG INJ IV SCH ×3 (01:00→17:09)
[2018-08-11 01:20] VITALS: BMI 16.7
[2018-08-11] MEDS: CARVEDILOL 3.125 MG TAB PO SCH ×3 (06:04→17:13)
[2018-08-11 06:12] LABS: Absolute Lymphocytes (CBC) 0.2 K/uL (0.7-4.9); Absolute Monocytes 0.2 K/uL (0.1-1.3); Absolute Neutrophil 7.1 K/uL (1.8-8.0); Basophils % 0.1 % (0-1.3); Hematocrit 36.1 % (36.0-45.0); Lymphocytes % 2.7 % (15.3-44.8); MPV 7.8 fL (7.6-11.3); Monocytes % 3.3 % (3.3-12.3); RBC Red Blood Cell Count 3.83 M/uL (3.86-4.86)
[2018-08-11 06:30] LABS: BUN Blood Urea Nitrogen 30 mg/dL (7-18); Bicarbonate 35 mmol/L (21-32); Glucose Level 146 mg/dL (74-106); NT PRO-BNP 866 pg/mL (<125); Potassium 4.6 mmol/L (3.5-5.1); Sodium Level 140 mmol/L (136-145)
[2018-08-11 07:51] LABS: Blood Morphology Comment NOT SEEN (NOT SEEN); Platelet Estimate ADEQ; Urine White Blood Cell Casts OK
[2018-08-11] MEDS ORDERED: INFLUENZA VACCINE (for 3y+) 0.5 ML DOSE IMVAC ONE (08:00)
[2018-08-11] MEDS ORDERED: PNEUMOCOCCAL VACCINE 0.5 ML IMVAC ONE (08:00)
[2018-08-11] MEDS: ALBUTEROL 2.5 MG/3 ML NEB SOL NEB PRN (08:39)
[2018-08-11] MEDS: IPRATROPIUM BROM 0.5MG/2.5ML NEB PRN (08:39)
[2018-08-11] MEDS: SACUBITRIL/VALSARTAN 24/26 MG TAB PO SCH ×2 (09:02→20:34)
[2018-08-11] MEDS: ASPIRIN EC 81 MG TAB PO SCH (09:02)
[2018-08-11] MEDS: ALPRAZOLAM 0.25 MG TABLET PO PRN ×2 (09:06→20:34)
[2018-08-11 14:27] LABS: Urine Appearance CLEAR; Urine Blood NEGATIVE (NEG); Urine Color YELLOW; Urine Glucose NEGATIVE (NEG); Urine Protein NEGATIVE (NEG); Urine Specific Gravity 1.025 (1.005-1.030)
[2018-08-11 14:47] LABS: Urine Bilirubin NEGATIVE (NEG)
[2018-08-11] MEDS: Levofloxacin500mg IV 500 MG/100 ML BAG IV SCH (15:14)
[2018-08-11 15:15] LABS: Urine Bacteria LOADED /HPF (<20); Urine Culture Reflex Order NOT NEEDED; Urine RBC <5 /HPF (NONE SEEN)
[2018-08-11] MEDS: ENSURE ENLIVE 237 ML CAN PO SCH (20:35)
[2018-08-12] MEDS: METHYLPREDNISOLONE 40 MG INJ IV SCH ×3 (00:06→16:57)
--- NOTE | 2018-08-12 04:35 | HP ---
Date of Admission: 08/10/2018 Chief Complaint: Difficulty with breathing and wheezing. History Of Present Illness: A 67-year-old female who was brought to the emergency room because of wh eezing and shortness of breath. She was found to have acute respiratory failure with a pH of 7.15 an d pCO2 over 100. The patient was put on BiPAP and transferred to floor. The patient denied any hist ory of chest pain, fever, chills, or rigors. Past Medical History: The patient is known to have severe COPD, history of congestive heart failure, and hypertension. Past Surgical History: Positive for appendectomy and permanent pacemaker. Allergies: MORPHINE AND PENICILLINS. Home Medicines: Please refer to the chart. Review of Systems: No history of chest pain, fever, chills, or rigors. Physical Examination: General: Revealed a 67-year-old female with audible wheezing, on BiPAP. HEENT: Negative. Neck: Supple. JVD negative. Chest: Bilateral wheezes. Heart: Irregularity noted. Abdomen: Soft. Extremities: No edema. Laboratory Data: Chest x-ray done in the emergency room showed evidence of COPD. No pneumonia. Laboratory Data: White count 12.0. Otherwise, negative. Chem profile; BUN 21, BNP 512. Troponin n ormal. Assessment: 1.Chronic obstructive pulmonary disease exacerbation. 2.Acute respiratory failure from above. 3.Known congestive heart failure, compensated. 4.Permanent pacemaker. Plan: IV steroids, antibiotic, BiPAP, and breathing treatments as ordered. RAMIRO/KARLOS Voice ID: [id number]
[2018-08-12] MEDS: CARVEDILOL 3.125 MG TAB PO SCH ×2 (06:27→17:02)
[2018-08-12] MEDS: ASPIRIN EC 81 MG TAB PO SCH (08:25)
[2018-08-12] MEDS: ALPRAZOLAM 0.25 MG TABLET PO PRN ×2 (08:25→20:13)
[2018-08-12] MEDS: SACUBITRIL/VALSARTAN 24/26 MG TAB PO SCH ×2 (08:25→20:13)
[2018-08-12] MEDS: ENSURE ENLIVE 237 ML CAN PO SCH ×2 (08:26→20:18)
[2018-08-12] MEDS: Levofloxacin500mg IV 500 MG/100 ML BAG IV SCH (15:22)
[2018-08-12] MEDS ORDERED: ENOXAPARIN 30 MG/0.3 ML SQ ONE (22:59)
[2018-08-13] MEDS: METHYLPREDNISOLONE 40 MG INJ IV SCH ×2 (00:31→08:41)
--- NOTE | 2018-08-13 04:28 | PN ---
The patient is doing better. She has less wheezing and she is able to move more air. She is using B iPAP only intermittently. The patient will be continued on the same management. She will receive Lo venox. The patient will be taken off IV steroids tomorrow and changed to p.o. medicines. RAMIRO/KARLOS Voice ID: [id number] Report ID: [id number]
[2018-08-13] MEDS: CARVEDILOL 3.125 MG TAB PO SCH ×2 (06:01→17:41)
[2018-08-13] MEDS: ASPIRIN EC 81 MG TAB PO SCH (08:40)
[2018-08-13] MEDS: SACUBITRIL/VALSARTAN 24/26 MG TAB PO SCH ×2 (08:41→20:31)
[2018-08-13] MEDS: ENSURE ENLIVE 237 ML CAN PO SCH ×2 (08:44→20:26)
[2018-08-13] MEDS: ALPRAZOLAM 0.25 MG TABLET PO PRN ×2 (08:48→20:31)
[2018-08-13] MEDS: IPRATROPIUM BROM 0.5MG/2.5ML NEB PRN (13:00)
[2018-08-13] MEDS: ALBUTEROL 2.5 MG/3 ML NEB SOL NEB PRN (13:00)
[2018-08-13] MEDS ORDERED: levoFLOXacin 500 MG TAB PO SCH (15:00)
[2018-08-13] MEDS ORDERED: ENOXAPARIN 30 MG/0.3 ML SQ ONE (19:36)
[2018-08-13] MEDS: predniSONE 20 MG TAB PO SCH (20:31)
--- NOTE | 2018-08-14 00:06 | PN ---
The patient is doing much better. She is off IV antibiotic and IV steroids. She is placed on oral s teroids and antibiotic. She will be watched overnight, and if she does well, she will be discharged tomorrow on oral steroids and antibiotic as she is on today. RAMIRO/KARLOS Voice ID: [id number] Report ID: [id number]
[2018-08-14 00:24] VITALS: O2SAT 100
[2018-08-14] MEDS: CARVEDILOL 3.125 MG TAB PO SCH (06:08)
[2018-08-14] MEDS: SACUBITRIL/VALSARTAN 24/26 MG TAB PO SCH (08:32)
[2018-08-14] MEDS: ASPIRIN EC 81 MG TAB PO SCH (08:32)
[2018-08-14] MEDS: predniSONE 20 MG TAB PO SCH (08:33)
[2018-08-14] MEDS: ENSURE ENLIVE 237 ML CAN PO SCH (08:34)
[2018-08-14] MEDS: ALPRAZOLAM 0.25 MG TABLET PO PRN (08:35)
[2018-08-14 09:48] VITALS: BP 154/72; TEMP 97.4
== END 2018-08-14 10:18 | disposition home or self-care (01) | DRG 190 ==
LOC: ER 11:30 → ERHOLD 16:06 → 2ND 18:07
PROVIDERS: ADMIT Internal Medicine; ATTEND Internal Medicine
PROC: 5A09457 Assistance with Respiratory Ventilation, 24-96 Consecutive Hours, Continuous Positive Airway Pressure (ICD-10-PCS; principal; 2018-08-10)
DX: J44.1 Chronic obstructive pulmonary disease with (acute) exacerbation (principal); J96.00 Acute respiratory failure, unspecified whether with hypoxia or hypercapnia; Z88.5 Allergy status to narcotic agent; Z88.0 Allergy status to penicillin; Z95.0 Presence of cardiac pacemaker; I11.0 Hypertensive heart disease with heart failure; I50.9 Heart failure, unspecified; Z66 Do not resuscitate
CPT/HCPCS: 36415; 71045; 80048; 80076; 81001; 82805; 82962; 83605; 83735; 83880; 84145; 84484; 85025; 85610; 87040; 87493; 87804; 90670; 93005; 94640; 94660; 94760; 96365; 99285; G0008; G0009; J1650; J2920; J7512; Q2035

== ENCOUNTER 2018-09-16 01:42 | Inpatient (IN) | payer OTHER ==
--- OUTSIDE RECORDS SUMMARY | 2018-09-16 01:45 | XMS REPORT | Clinical Summary ---
:1950 Author Organization [facility] Address [address] [place] [address] Care Team Providers Name Role Phone Tushar [...] 1998 COLON CANCER SCREENING 1998 SHINGLES VACCINES (#1) 1998 65+ PNEUMOCOCCAL VACCINE (1 of 2 - PCV13) 2013 PNEUMOCOCCAL POLYSACCHARIDE VACCINE AGE 65 AND OVER 2013 INFLUENZA VACCINE 02/15/2018 Implants Implanted Type Area Flexible Machining System Machinist Device Shelf Model / Identifier Expiration Serial / Date Lot [employer] [place] G Model 0295 59 Cm Df4 Tachy Lead - [id number] Cardiac Pacing N/A: [place] 06/07/2018 0295 / Implanted: 07/07/2016 (Quantity not on file) Leads or N/A DNAdigest [id number] / Electrodes or [id number] Accessories Acuity X 4 - [id number] Cardiac Pacing N/A: [place] 11/23/2017 4671 / Implanted: 07/07/2016 (Quantity not on file) Leads or N/A DNAdigest [id number] / Electrodes or [id number] Accessories Ingevity Mri Pacing Lead 45cm - [id number] Cardiac Pacing N/A: [place] 7740 45 / Implanted: 07/07/2016 (Quantity not on file) Leads or N/A DNAdigest [id number] / Electrodes or [id number] Accessories Generator Production Maintenance Technician-D Inogen X4 Df4 - [id number] Defibrillator N/A: [place] 03/26 [id number] / Implanted: 07/07/2016 (Quantity not on file) ICD Devices N/A Yesmail CRM [id number] / [id number] Results Not on fileafter 09/15/2017 Insurance Payer Benefit Plan / Group Subscriber ID Type Phone Address MEDICARE MEDICARE PART A AND B xxxxxxxxxx Medicare [place], [place] Advance Directives Patient has advance care planning documents on file. For more information, please contact:Mauro [id number] [place] [address]
[2018-09-16] MEDS ORDERED: LEVALBUTEROL 1.25 MG/3 ML NEB ONE (02:27)
[2018-09-16] MEDS ORDERED: METHYLPREDNISOLONE 125 MG INJ ONE (02:27)
[2018-09-16] MEDS ORDERED: AZITHROMYCIN 500 MG INJ IVPB ONE (02:27)
[2018-09-16] MEDS ORDERED: NA CHLORIDE 0.9% 1,000 ML ONE (02:28)
[2018-09-16] MEDS ORDERED: CEFEPIME 1 GM/100 ML BAG IV ONE (02:28)
[2018-09-16] MEDS ORDERED: IPRATROPIUM BROM 0.5MG/2.5ML ONE (02:28)
[2018-09-16] MEDS ORDERED: NA CHLORIDE 0.9% 250 ML ONE ×2 (02:28→03:32)
[2018-09-16 02:38] LABS: Protime INR 0.96
[2018-09-16 02:40] LABS: Absolute Lymphocytes (CBC) 1.1 K/uL (0.7-4.9); Absolute Monocytes 1.2 K/uL (0.1-1.3); Basophils % 1.4 % (0-1.3); Eosinophils % 0.5 % (0-4.4); Hematocrit 37.4 % (36.0-45.0); Lymphocytes % 7.9 % (15.3-44.8); Monocytes % 8.8 % (3.3-12.3); RBC Red Blood Cell Count 4.03 M/uL (3.86-4.86)
[2018-09-16 02:47] LABS: Arterial Blood Carboxyhemoglob 1.4 % (0-1.5); Blood Gas Oxyhemoglobin 84.8 % (94-97)
[2018-09-16 02:55] LABS: ALT/SGPT 15 U/L (12-78); AST/SGOT 20 U/L (15-37); Albumin 3.6 g/dL (3.4-5.0); Alkaline Phosphatase 93 U/L (45-117); BUN Blood Urea Nitrogen 16 mg/dL (7-18); Bicarbonate 37 mmol/L (21-32); Bilirubin Direct < 0.1 mg/dL (0-0.2); Bilirubin Total 0.2 mg/dL (0.2-1.0); Glucose Level 190 mg/dL (74-106); Magnesium 2.2 mg/dL (1.8-2.4); NT PRO-BNP 980 pg/mL (<125); Potassium 3.7 mmol/L (3.5-5.1); Protein, Total 7.1 g/dL (6.4-8.2); Sodium Level 139 mmol/L (136-145); Troponin (Emerg Dept Use Only) 0.04 ng/mL (0.0-0.045)
--- NOTE | 2018-09-16 03:16 | ER ---
Nurse's Notes [facility] Name: Jeannette Wing Age: 67 yrs Sex: Female : 1950 Arrival Date: 09/16/2018 Time: 01:50 Bed 3 Private MD: Diagnosis: Chronic obstructive pulmonary disease with (acute) exacerbation;Hypoxemia;Dyspnea Presentation: 09/16 01:51 Presenting complaint: EMS states: Pt reported she started feeling short of breath since ea yesterday and symptoms became worse. Pt reported she felt like she was retaining CO2. Transition of care: patient was not received from another setting of care. Onset of symptoms was September 16, 2018. Risk Assessment: Do you want to hurt yourself or someone else? Patient reports no desire to harm self or others. Initial Sepsis Screen: Does the patient meet any 2 criteria? RR > 20 per min. HR > 90 bpm. Does the patient have a suspected source of infection? No. Patient's initial sepsis screen is negative. Care prior to arrival: Home CPAP. 01:51 Method Of Arrival: EMS: [facility] 01:51 Acuity: RON 1 tl2 Triage Assessment: 01:50 General: Appears uncomfortable. General: Behavior is cooperative, restless. Neuro: ea Level of Consciousness is awake, alert, obeys commands, Oriented to person, place, time, situation. Respiratory: Reports labored breathing since yesterday Airway is patent Respiratory effort is labored, Respiratory pattern is tachypnea Onset: The symptoms/episode began/occurred yesterday, the patient has moderate shortness of breath. Historical: - Allergies: 02:05 Morphine; ea 02:05 PENICILLINS; ea - Home Meds: 02:05 acetazolamide 250 mg Oral tab 1 tab once daily [Active]; alprazolam 0.25 mg Oral tab 1 ea tab BID [Active]; carvedilol 3.125 mg Oral tab 1 tab 2 times per day [Active]; furosemide 40 mg Oral tab 1 tab once daily [Active]; Plavix 75 mg Oral tab 1 tab once daily [Active]; Entresto 24-26 mg Oral tab 1 tab twice a day [Active]; prednisone 5 mg Oral tab 1 tab once daily [Active]; aspirin 81 mg Oral chew 1 tab once daily [Active]; theophylline 300 mg Oral Tb12 1 tab QD [Active]; albuterol sulfate 2.5 mg /3 mL (0.083 %) Inhl nebu 3 mL 3 times per day [Active]; Brovana 15 mcg/2 mL inhalation nebu 2 mL 2 times per day [Active]; - PMHx: 02:05 CHF; COPD; Hypertension; ea - PSHx: 02:05 Pacemaker/Defibrillator; Appendectomy; ea - Immunization history:: Adult Immunizations up to date. - Social history:: Smoking status: Patient uses tobacco products, smokes one-half pack cigarettes per day. - Ebola Screening: : No symptoms or risks identified at this time. Screenin:06 Abuse screen: Denies threats or abuse. Nutritional screening: No deficits noted. ea Tuberculosis screening: No symptoms or risk factors identified. Fall Risk IV access (20 points). Assessment: 01:55 Reassessment: Respiratory at bedside, Pt placed on BiPAP, tolerating well. O2 sats at ea 96%, respiration rate improved. 02:00 General: Appears distressed, uncomfortable, Behavior is calm, cooperative, appropriate tl2 for age. Pain: Denies pain. Neuro: Level of Consciousness is awake, alert, obeys commands, Oriented to person, place, time, situation. Cardiovascular: Denies chest pain, Rhythm is sinus tachycardia. Respiratory: Airway is patent Respiratory effort is even, labored, using tripod position, Respiratory pattern is tachypnea Breath sounds are diminished bilaterally. in right upper lobe, left upper lobe, left posterior upper lobe, right posterior upper lobe, left posterior lower lobe and right posterior lower lobe. Respiratory: marked barrel chest noted. GI: No signs and/or symptoms were reported involving the gastrointestinal system. : No signs and/or symptoms were reported regarding the genitourinary system. Derm: Skin is pink, warm \T\ dry. Bruising that is dark purple. 03:00 Reassessment: MD and charge nurse aware of pt's increased HR and RR. Awaiting further tl2 orders. 03:30 Reassessment: Patient and/or family updated on plan of care and expected duration. Pain ea level reassessed. Pt remains on BiPAP, tolerating well. Denies pain at this time. Pt complaining of feeling anxious, provider notified, order obtained, medication administered. Pt tolerated well. 03:40 Reassessment: Notified MD of pt's HR, repeat EKG ordered. New meds see SEP. tl2 04:15 Reassessment: Patient and/or family updated on plan of care and expected duration. Pain ea level reassessed. Report called to ICU receiving nurse. 04:45 Reassessment: Patient and/or family updated on plan of care and expected duration. Pain ea level reassessed. Pt admitted to ICU, via stretcher per tech and nurse. RT at bedside, pt placed on venturi mask per RT, pt tolerating well. Pt alert and oriented x 3. Denies pain at this time. O2 sats 96%, HR 108, RR: 27. Vital Signs: 01:54 BP 178 / 99; Pulse 128; Resp 32; Temp 98.4(O); Pulse Ox 74% on CPAP; Weight 42.64 kg tl2 (R); Height 5 ft. 5 in. (165.10 cm); 01:54 BP 167 / 93; Pulse 135; Resp 28; Pulse Ox 99% on 100% BiPAP; tl2 02:52 BP 140 / 89; Pulse 136; Resp 32; Pulse Ox 100% on 100% BiPAP; tl2 03:35 BP 126 / 83; Pulse 161; Resp 34; Pulse Ox 92% on BiPAP; ea 03:54 BP 111 / 82; Pulse 151; Resp 39; Pulse Ox 99% on 40% BiPAP; tl2 04:25 BP 104 / 78; Pulse 117; Resp 30; Pulse Ox 90% ; ea 01:54 Body Mass Index 15.64 (42.64 kg, 165.10 cm) tl2 Vitals: 01:54 Cardiac Rhythm Assessment Sinus tach. tl2 ED Course: 01:50 Patient arrived in ED. ea 01:54 Kevin Sin MD is Attending Physician. cristofer 01:54 Triage completed. ea 01:55 Arm band placed on Patient placed in an exam room, on a stretcher, on hall monitor, ea on pulse oximetry, Placed on BIPAP per respiratory. 01:55 Patient has correct armband on for positive identification. Placed in gown. Bed in low ea position. Call light in reach. Side rails up X2. 02:05 Inserted saline lock: 20 gauge in left antecubital area, using aseptic technique. Blood tl2 collected. 02:20 XRAY Chest (1 view) In Process Unspecified. EDMS 03:04 Tushar Conley MD is Hospitalizing Provider. cristofer 03:08 Abigail Bowen RN is Primary Nurse. ea 04:07 No provider procedures requiring assistance completed. Patient admitted, IV remains in ea place. Administered Medications: Discontinued: NS 0.9% 1000 ml IV at 75 ml/hr continuous 02:06 CANCELLED (Duplicate Order): NS 0.9% 1000 ml IV at 75 ml/hr continuous cristofer 02:12 Drug: NS 0.9% 1000 ml Route: IV; Rate: 75 ml/hr; Site: left antecubital; ea 04:21 Follow up: Response: No adverse reaction; IV Status: Infusion continued upon admission ea 02:15 Drug: Xopenex 3.75 mg Route: Inhalation; ea 02:30 Follow up: Response: No adverse reaction ea 02:15 Drug: AtroVENT Aerosol 0.5 mg Route: Inhalation; ea 02:16 Not Given (Duplicate Order): Atropine 0.5 mg IVP once cristofer 02:17 Drug: Cefepime 1 grams Route: IVPB; Rate: 200 ml/hr; Infused Over: 30 mins; Site: left ea antecubital; 03:17 Follow up: Response: No adverse reaction; IV Status: Completed infusion; IV Intake: ea 100ml 02:20 Drug: SOLU-Medrol 2 mg/kg Route: IVP; Site: left antecubital; ea 03:00 Follow up: Response: No adverse reaction ea 02:56 Not Given (Duplicate Order): NS 0.9% 250 ml IV at bolus once cristofer 03:27 Drug: Decadron - Dexamethasone 10 mg Route: IVP; Site: left antecubital; tl2 04:00 Follow up: Response: No adverse reaction ea 03:28 Drug: NS 0.9% 250 ml Route: IV; Rate: bolus; Site: left antecubital; tl2 04:17 Follow up: IV Status: Completed infusion; IV Intake: 250ml ea 03:28 Drug: Ativan 0.5 mg Route: IVP; Site: left antecubital; tl2 04:00 Follow up: Response: No adverse reaction; Marked relief of symptoms ea 03:29 Drug: Zithromax 500 mg Route: IVPB; Infused Over: 1 hrs; Site: left antecubital; tl2 03:53 Drug: Digoxin 0.5 mg Route: IVP; Site: left antecubital; tl2 04:26 Follow up: Response: No adverse reaction ea 03:53 Drug: Lasix 40 mg Route: IVP; Site: left antecubital; tl2 04:26 Follow up: Response: No adverse reaction ea 03:55 Drug: Lovenox 40 mg Route: Sub-Q; Site: right lower abdomen; ea 04:20 Follow up: Response: No adverse reaction ea 03:55 Drug: Pepcid 20 mg Route: IVP; Site: left antecubital; ea 04:20 Follow up: Response: No adverse reaction ea 04:00 Drug: Lopressor 2.5 mg Route: IVP; Site: left antecubital; ea 04:10 Follow up: Response: No adverse reaction ea 04:15 Drug: Lopressor 2.5 mg Route: IVP; Site: left antecubital; ea 04:25 Follow up: BP 104 / 78; Pulse 117 bpm; Resp 30 bpm; Pulse Ox 90% ; Response: No adverse ea reaction; Marked relief of symptoms Intake: 03:17 IV: 100ml; Total: 100ml. ea 04:17 IV: 250ml; Total: 350ml. ea Outcome: 03:15 Decision to Hospitalize by Provider. cristofer 04:00 Instructed on the need for admit. ea 04:45 Admitted to ICU accompanied by nurse, accompanied by tech, via stretcher, room 8, with ea oxygen, on monitor, with chart, Other Respiratory at bedside, venturi mask in place. Pt tolerating well Report called to Receiving nurse in ICU 04:45 Condition: stable 05:07 Patient left the ED. ea Signatures: Dispatcher [employer] ED[facility] Kevin Sin MD MD cha Knox, Taylor RN RN tl2 Abigail Bowen RN RN ea Corrections: (The following items were deleted from the chart) 01:59 01:51 Acuity: RON 2 ea tl2 02:04 01:54 BP 128 / 99; Pulse 128bpm; Resp 32bpm; Pulse Ox 74% CPAP; Temp 98.4F Oral; 42.64 tl2 kg Reported; Height 5 ft. 5 in.; BMI: 15.6; ea 02:08 02:07 Arm band placed on Patient placed in an exam room, on a stretcher, on cardiac ea monitor, on pulse oximetry, Placed on BIPAP per respiratory ea
--- NOTE | 2018-09-16 03:16 | EDPHYS ---
Physician Documentation [facility] Name: Jeannette Wing Age: 67 yrs Sex: Female : 1950 Arrival Date: 09/16/2018 Time: 01:50 Bed 3 Private MD: ED Physician Kevin Sin HPI: 09/16 02:10 This 67 yrs old Female presents to ER via EMS with complaints of Shortness Of cristofer Breath. 02:10 The patient has shortness of breath at rest, with light activity. Onset: The cristofer symptoms/episode began/occurred 2 day(s) ago. Duration: The symptoms are continuous, and are steadily getting worse. The patient's shortness of breath has no apparent modifying factors. Associated signs and symptoms: The patient has no apparent associated signs or symptoms. Severity of symptoms: At their worst the symptoms were mild in the emergency department the symptoms. The patient has experienced similar episodes in the past. Historical: - Allergies: 02:05 Morphine; ea 02:05 PENICILLINS; ea - Home Meds: 02:05 acetazolamide 250 mg Oral tab 1 tab once daily [Active]; alprazolam 0.25 mg Oral tab 1 ea tab BID [Active]; carvedilol 3.125 mg Oral tab 1 tab 2 times per day [Active]; furosemide 40 mg Oral tab 1 tab once daily [Active]; Plavix 75 mg Oral tab 1 tab once daily [Active]; Entresto 24-26 mg Oral tab 1 tab twice a day [Active]; prednisone 5 mg Oral tab 1 tab once daily [Active]; aspirin 81 mg Oral chew 1 tab once daily [Active]; theophylline 300 mg Oral Tb12 1 tab QD [Active]; albuterol sulfate 2.5 mg /3 mL (0.083 %) Inhl nebu 3 mL 3 times per day [Active]; Brovana 15 mcg/2 mL inhalation nebu 2 mL 2 times per day [Active]; - PMHx: 02:05 CHF; COPD; Hypertension; ea - PSHx: 02:05 Pacemaker/Defibrillator; Appendectomy; ea - Immunization history:: Adult Immunizations up to date. - Social history:: Smoking status: Patient uses tobacco products, smokes one-half pack cigarettes per day. - Ebola Screening: : No symptoms or risks identified at this time. ROS: 02:17 Constitutional: Negative for fever, chills, and weight loss, Eyes: Negative for injury, cristofer pain, redness, and discharge, ENT: Negative for injury, pain, and discharge, Neck: Negative for injury, pain, and swelling, Cardiovascular: Negative for chest pain, palpitations, and edema, Abdomen/GI: Negative for abdominal pain, nausea, vomiting, diarrhea, and constipation, Back: Negative for injury and pain, : Negative for injury, bleeding, discharge, and swelling, MS/Extremity: Negative for injury and deformity, Skin: Negative for injury, rash, and discoloration, Neuro: Negative for headache, weakness, numbness, tingling, and seizure, Psych: Negative for depression, anxiety, suicide ideation, homicidal ideation, and hallucinations, Allergy/Immunology: Negative for hives, rash, and allergies, Endocrine: Negative for neck swelling, polydipsia, polyuria, polyphagia, and marked weight changes, Hematologic/Lymphatic: Negative for swollen nodes, abnormal bleeding, and unusual bruising. 02:17 Respiratory: Positive for cough, shortness of breath, wheezing, inspiratory, expiratory. Exam: 02:18 Constitutional: This is a well developed, well nourished patient who is awake, alert, cristofer and in no acute distress. Head/Face: Normocephalic, atraumatic. Eyes: Pupils equal round and reactive to light, extra-ocular motions intact. Lids and lashes normal. Conjunctiva and sclera are non-icteric and not injected. Cornea within normal limits. Periorbital areas with no swelling, redness, or edema. ENT: Nares patent. No nasal discharge, no septal abnormalities noted. Tympanic membranes are normal and external auditory canals are clear. Oropharynx with no redness, swelling, or masses, exudates, or evidence of obstruction, uvula midline. Mucous membranes moist. Neck: Trachea midline, no thyromegaly or masses palpated, and no cervical lymphadenopathy. Supple, full range of motion without nuchal rigidity, or vertebral point tenderness. No Meningismus. Chest/axilla: Normal chest wall appearance and motion. Nontender with no deformity. No lesions are appreciated. Abdomen/GI: Soft, non-tender, with normal bowel sounds. No distension or tympany. No guarding or rebound. No evidence of tenderness throughout. Back: No spinal tenderness. No costovertebral tenderness. Full range of motion. Skin: Warm, dry with normal turgor. Normal color with no rashes, no lesions, and no evidence of cellulitis. MS/ Extremity: Pulses equal, no cyanosis. Neurovascular intact. Full, normal range of motion. Neuro: Awake and alert, GCS 15, oriented to person, place, time, and situation. Cranial nerves II-XII grossly intact. Motor strength 5/5 in all extremities. Sensory grossly intact. Cerebellar exam normal. Normal gait. Psych: Awake, alert, with orientation to person, place and time. Behavior, mood, and affect are within normal limits. 02:18 Cardiovascular: Rate: tachycardic, Rhythm: regular, Pulses: Pulses are 4+ in bilateral radial, brachial, femoral, popliteal, posterior tibial and and dorsalis pedis arteries.. Heart sounds: normal, Edema: is not appreciated, JVD: is not appreciated. Vital Signs: 01:54 BP 178 / 99; Pulse 128; Resp 32; Temp 98.4(O); Pulse Ox 74% on CPAP; Weight 42.64 kg tl2 (R); Height 5 ft. 5 in. (165.10 cm); 01:54 BP 167 / 93; Pulse 135; Resp 28; Pulse Ox 99% on 100% BiPAP; tl2 02:52 BP 140 / 89; Pulse 136; Resp 32; Pulse Ox 100% on 100% BiPAP; tl2 03:35 BP 126 / 83; Pulse 161; Resp 34; Pulse Ox 92% on BiPAP; ea 03:54 BP 111 / 82; Pulse 151; Resp 39; Pulse Ox 99% on 40% BiPAP; tl2 04:25 BP 104 / 78; Pulse 117; Resp 30; Pulse Ox 90% ; ea 01:54 Body Mass Index 15.64 (42.64 kg, 165.10 cm) tl2 MDM: 01:54 Patient medically screened. cristofer 02:19 Data reviewed: vital signs, nurses notes, lab test result(s), EKG, radiologic studies. [facility] 09/16 02:05 Order name: Basic Metabolic Panel; Complete Time: 03:03 [facility] 09/16 02:05 Order name: CBC with Diff; Complete Time: 02:55 [facility] 09/16 02:05 Order name: LFT's; Complete Time: 03:03 [facility] 03/02 02:05 Order name: Magnesium; Complete Time: 03:03 [facility] 09/16 02:05 Order name: NT PRO-BNP; Complete Time: 03:03 [facility] 09/16 02:05 Order name: PT-INR; Complete Time: 02:55 [facility] 09/16 02:05 Order name: Troponin (emerg Dept Use Only); Complete Time: 03:03 [facility] 09/16 02:05 Order name: ABG; Complete Time: 02:55 [facility] 09/16 02:07 Order name: Urine Culture [facility] 09/16 02:07 Order name: Procalcitonin; Complete Time: 03:23 [facility] 09/16 02:07 Order name: Lactate; Complete Time: 03:23 [facility] 09/16 02:22 Order name: Blood Culture Adult (2) tl2 09/16 02:56 Order name: Flu; Complete Time: 03:43 [facility] 09/16 02:56 Order name: Theophylline; Complete Time: 03:23 [facility] 09/16 02:05 Order name: XRAY Chest (1 view) [facility] 09/16 02:24 Order name: BIPAP [facility] 09/16 03:31 Order name: Urine Dipstick--Ancillary (enter results) 2 09/16 02:05 Order name: EKG; Complete Time: 02:06 [facility] 09/16 02:05 Order name: Cardiac monitoring; Complete Time: 02:18 [facility] 09/16 02:05 Order name: EKG - Nurse/Tech; Complete Time: 02:18 [facility] 09/16 02:05 Order name: IV Saline Lock; Complete Time: 02:18 [facility] 09/16 02:05 Order name: Labs collected and sent; Complete Time: 02:18 [facility] 09/16 02:05 Order name: O2 Per Protocol; Complete Time: 02:18 [facility] 09/16 02:05 Order name: O2 Sat Monitoring; Complete Time: 02:19 [facility] 09/16 02:07 Order name: Urine Dipstick-Ancillary (obtain specimen); Complete Time: 03:20 [facility] 09/16 02:28 Order name: Meyer; Complete Time: 03:19 [facility] 09/16 03:12 Order name: CONS Physician Consult [facility] 09/16 03:43 Order name: EKG; Complete Time: 03:43 [facility] 09/16 03:43 Order name: EKG - Nurse/Tech; Complete Time: 03:58 [facility] Administered Medications: Discontinued: NS 0.9% 1000 ml IV at 75 ml/hr continuous 02:06 CANCELLED (Duplicate Order): NS 0.9% 1000 ml IV at 75 ml/hr continuous cristofer 02:12 Drug: NS 0.9% 1000 ml Route: IV; Rate: 75 ml/hr; Site: left antecubital; ea 04:21 Follow up: Response: No adverse reaction; IV Status: Infusion continued upon admission ea 02:15 Drug: Xopenex 3.75 mg Route: Inhalation; ea 02:30 Follow up: Response: No adverse reaction ea 02:15 Drug: AtroVENT Aerosol 0.5 mg Route: Inhalation; ea 02:16 Not Given (Duplicate Order): Atropine 0.5 mg IVP once cristofer 02:17 Drug: Cefepime 1 grams Route: IVPB; Rate: 200 ml/hr; Infused Over: 30 mins; Site: left ea antecubital; 03:17 Follow up: Response: No adverse reaction; IV Status: Completed infusion; IV Intake: ea 100ml 02:20 Drug: SOLU-Medrol 2 mg/kg Route: IVP; Site: left antecubital; ea 03:00 Follow up: Response: No adverse reaction ea 02:56 Not Given (Duplicate Order): NS 0.9% 250 ml IV at bolus once cristofer 03:27 Drug: Decadron - Dexamethasone 10 mg Route: IVP; Site: left antecubital; tl2 04:00 Follow up: Response: No adverse reaction ea 03:28 Drug: NS 0.9% 250 ml Route: IV; Rate: bolus; Site: left antecubital; tl2 04:17 Follow up: IV Status: Completed infusion; IV Intake: 250ml ea 03:28 Drug: Ativan 0.5 mg Route: IVP; Site: left antecubital; tl2 04:00 Follow up: Response: No adverse reaction; Marked relief of symptoms ea 03:29 Drug: Zithromax 500 mg Route: IVPB; Infused Over: 1 hrs; Site: left antecubital; tl2 03:53 Drug: Digoxin 0.5 mg Route: IVP; Site: left antecubital; tl2 04:26 Follow up: Response: No adverse reaction ea 03:53 Drug: Lasix 40 mg Route: IVP; Site: left antecubital; tl2 04:26 Follow up: Response: No adverse reaction ea 03:55 Drug: Lovenox 40 mg Route: Sub-Q; Site: right lower abdomen; ea 04:20 Follow up: Response: No adverse reaction ea 03:55 Drug: Pepcid 20 mg Route: IVP; Site: left antecubital; ea 04:20 Follow up: Response: No adverse reaction ea 04:00 Drug: Lopressor 2.5 mg Route: IVP; Site: left antecubital; ea 04:10 Follow up: Response: No adverse reaction ea 04:15 Drug: Lopressor 2.5 mg Route: IVP; Site: left antecubital; ea 04:25 Follow up: BP 104 / 78; Pulse 117 bpm; Resp 30 bpm; Pulse Ox 90% ; Response: No adverse ea reaction; Marked relief of symptoms Disposition: 09/16/18 03:15 Hospitalization ordered by Tushar Conley for Inpatient Admission. Preliminary diagnosis are Chronic obstructive pulmonary disease with (acute) exacerbation, Hypoxemia, Dyspnea. - Bed requested for Intensive Care Unit. - Status is Inpatient Admission. ea - Condition is Fair. - Problem is new. - Symptoms have improved. UTI on Admission? No Signatures: Dispatcher [employer] EDMS Zandra Dangelo RN RN mw Anderson, Corey, MD MD cha Knox, Taylor, RN RN tlAbigail Fair RN RN ea Corrections: (The following items were deleted from the chart) 02:06 02:05 NS 0.9% 1000 ml IV at 75 ml/hr continuous ordered. cristofer cristofer 03:37 03:15 Hospitalization Ordered by Tushar Conley MD for Inpatient Admission. Preliminary mw diagnosis is Chronic obstructive pulmonary disease with (acute) exacerbation; Hypoxemia; Dyspnea. Bed requested for Intensive Care Unit. Status is Inpatient Admission. Condition is Fair. Problem is new. Symptoms have improved. UTI on Admission? No. cristofer 05:07 03:37 09/16/2018 03:15 Hospitalization Ordered by Tushar Conley MD for Inpatient ea Admission. Preliminary diagnosis is Chronic obstructive pulmonary disease with (acute) exacerbation; Hypoxemia; Dyspnea. Bed requested for Intensive Care Unit. Status is Inpatient Admission. Condition is Fair. Problem is new. Symptoms have improved. UTI on Admission? No. mw
[2018-09-16] MEDS ORDERED: DEXAMETHASONE 4 MG/ML VIAL ONE (03:32)
[2018-09-16] MEDS ORDERED: LORazepam 2 MG/ML VIAL ONE (03:36)
[2018-09-16] MEDS ORDERED: DIGOXIN 0.25 MG/ML AMP ONE (03:58)
[2018-09-16] MEDS ORDERED: FUROSEMIDE 40 MG/4 ML VIAL ONE (03:58)
[2018-09-16] MEDS ORDERED: METOPROLOL TARTRATE 5 MG/5 ML INJ IV ONE (04:04)
[2018-09-16] MEDS ORDERED: ENOXAPARIN 40 MG/0.4 ML SQ ONE (04:04)
[2018-09-16] MEDS ORDERED: FAMOTIDINE 20 MG/2 ML VIAL IV ONE (04:04)
[2018-09-16] MEDS ORDERED: ONDANSETRON 4 MG/2 ML VIAL IV PRN (04:38)
[2018-09-16] MEDS ORDERED: DIGOXIN 0.25 MG/ML AMP IV SCH ×2 (04:38→10:00)
[2018-09-16] MEDS ORDERED: IPRATROPIUM BROM 0.5MG/2.5ML NEB PRN (04:38)
[2018-09-16] MEDS ORDERED: ACETAMINOPHEN 500 MG TAB PO PRN (04:38)
--- NOTE | 2018-09-16 08:41 | RAD REPORT ---
EXAM DESCRIPTION: Stephon Single View09/16/2018 2:22 am CLINICAL HISTORY: Shortness of breath COMPARISON: July 2018 FINDINGS: The lungs appear clear of acute infiltrate. The heart is mildly enlarged. Pacemaker leads are in place. IMPRESSION: No acute abnormalities displayed
[2018-09-16] MEDS: ASPIRIN EC 81 MG TAB PO SCH (08:45)
[2018-09-16 08:56] LABS: Arterial Blood Carboxyhemoglob 1.7 % (0-1.5); Blood Gas Oxyhemoglobin 90.9 % (94-97)
[2018-09-16] MEDS ORDERED: CEFEPIME 1 GM/VIAL IV SCH (09:00)
[2018-09-16] MEDS ORDERED: METHYLPREDNISOLONE 40 MG INJ IV SCH (09:00)
[2018-09-16] MEDS ORDERED: FAMOTIDINE 20 MG/2 ML VIAL IV SCH (09:00)
[2018-09-16] MEDS: ALBUTEROL 2.5 MG/3 ML NEB SOL NEB PRN (09:40)
[2018-09-16] MEDS ORDERED: ARFORMOTEROL TARTRATE 15 MCG/2 ML VIAL.NEB IH PRN (09:57)
--- NOTE | 2018-09-16 09:59 | P.CNS ---
Date of Consult: 09/16/18 Reason for Consult: Respiratory failure Chief Complaint: Shortness of breath History of Present Illness: Patient is 67 years of age well known to me she has terminal COPD has a noninvasive vent at home which she has been compliant became acutely worse has been having some productive cough recently exposed to a flu like syndrome this currently stable alert responsive on BiPAP Allergies acetazolamide Allergy (Verified 09/16/18 05:52) Itching morphine Allergy (Verified 09/16/18 05:52) Anaphylaxis Penicillins Allergy (Verified 09/16/18 05:52) Anaphylaxis codeine Adverse Reaction (Verified 09/16/18 05:52) Due to Pacemaker/Defibrillator Home Medications: ALPRAZolam [Xanax*] 0.25 mg PO BID PRN 08/10/18 Albuterol Sulfate [Proair Hfa] 8.5 gm IH BID PRN 08/10/18 Arformoterol Tartrate [Brovana] 15 mcg IH BID PRN 08/10/18 Carvedilol [Coreg*] 3.125 mg PO BID 08/10/18 Cholecalciferol (Vitamin D3) [Vitamin D3] 1,000 unit PO QID 08/10/18 Clopidogrel Bisulfate [Plavix*] 75 mg PO DAILY 08/10/18 Furosemide [Lasix] 40 mg PO DAILY 08/10/18 Prednisolone [Millipred] 5 mg PO DAILY 08/10/18 Sacubitril/Valsartan [Entresto 24 mg-26 mg Tablet] 1 each PO Q12H 08/10/18 acetaZOLAMIDE [Diamox*] 0.5 tab PO DAILY 08/10/18 predniSONE [Deltasone] 20 mg PO BID #10 tab 08/14/18 Theophylline Anhydrous [Petey-24] 0.5 tab PO DAILY 09/16/18 - Past Medical/Surgical History Diabetic: No -: tendinitis on both hands -: COPD -: CHF -: HTN -: arthritis -: pacemaker/defibrillator -: HYSTERECTOMY -: APPENDECTOMY - Family History Mother Notes: mother from collapsing blood vessels Father Medical History: Heart disease Notes: heart attack Brother Medical History: Cancer Notes: lung cancer - Social History Smoking Status: Current every day smoker Alcohol use: No CD- Drugs: No Caffeine use: Yes Place of Residence: Home Review of Systems 10-point ROS is otherwise unremarkable General: Weakness Respiratory: Cough, Shortness of Breath Physical Examination Temp Pulse Resp BP Pulse Ox 98.9 F 98 H 26 H 120/75 91 09/16/18 05:11 09/16/18 09:00 09/16/18 09:00 09/16/18 09:00 09/16/18 09:00 General: Alert, Moderate distress Neck: Supple Respiratory: Clear to auscultation bilaterally, Diminished Cardiovascular: No edema, Regular rate/rhythm Gastrointestinal: Normal bowel sounds, Soft and benign Laboratory Data (last 24 hrs) 09/16/18 02:10: PT 11.3, INR 0.96 09/16/18 02:10: WBC 13.6 H, Hgb 12.1, Hct 37.4, Plt Count 228 09/16/18 02:10: Sodium 139, Potassium 3.7, BUN 16, Creatinine 0.75, Glucose 190 H, Magnesium 2.2, Total Bilirubin 0.2, AST 20, ALT 15, Alkaline Phosphatase 93 - Problems (1) Acute and chronic respiratory failure Current Visit: No Status: Acute Plan: Patient is 67 years of age with a history of terminal COPD admitted with worsening dyspnea productive cough CO2 is at her baseline patient is compliant with a noninvasive vent labs reviewed chest x-ray shows some interstitial disease vital signs stable continue with the antibiotics medications reconciled Qualifiers: Respiratory failure complication: hypoxia and hypercapnia
[2018-09-16] MEDS: CARVEDILOL 3.125 MG TAB PO SCH ×2 (13:16→20:22)
[2018-09-16] MEDS: ALPRAZOLAM 0.25 MG TABLET PO PRN (13:16)
[2018-09-16] MEDS: acetaZOLAMIDE 250 MG TAB PO SCH (13:16)
[2018-09-16] MEDS: CLOPIDOGREL 75 MG TABLET PO SCH (13:16)
[2018-09-16] MEDS: predniSONE 20 MG TAB PO SCH ×2 (13:17→20:22)
[2018-09-16] MEDS: IPRATROPIUM BROM 0.5MG/2.5ML NEB SCH ×2 (14:25→20:00)
[2018-09-16] MEDS: CEFEPIME/SWI 1gm 10 ML IV SCH (18:13)
[2018-09-16] MEDS ORDERED: AZITHROMYCIN IV 250 MG in NA CHLORIDE 0.9% 250 ML IVPB SCH (21:00)
[2018-09-17] MEDS: IPRATROPIUM BROM 0.5MG/2.5ML NEB SCH ×4 (02:00→20:00)
--- NOTE | 2018-09-17 03:05 | HP ---
Date of Admission: 09/16/2018 Chief Complaint: Shortness of breath. History Of Present Illness: A 67-year-old female who is known to have severe COPD as well as congest curt heart failure, was brought to the emergency room because of dyspnea. She had workup done. She h ad evidence of [id number] respiratory failure with CO2 retention and acidosis, mild. The patie nt is admitted. There is no history of chest pain or other symptoms such as fevers, chills, rigors, nausea, vomiting. Past Medical History: Positive for: 1.COPD, severe. 2.Congestive heart failure. 3.Hypertension. 4.Anxiety disorder. Surgical Procedures: Include history of appendectomy, pacemaker, and defibrillator placement. Family History: Noncontributory. Personal History: She is allergic to morphine and penicillins. Home Medicines: Please refer to the chart. Review of Systems: No history of chest pain, fever, chills, rigors. Physical Examination: General: Revealed a 67-year-old female with [id number] audible wheezing. HEENT: Otherwise negative. Neck: Supple. JVD negative. Chest: Bilateral wheezes. Heart: Irregularity noted. Abdomen: Soft. Extremities: Minimal pedal edema. Laboratory Data: White count 13.6. Chem profile, CO2 37. BNP 980. Troponin 0.5. Procalcitonin ne gative. Chest x-ray, COPD changes. Assessment: 1.Chronic obstructive pulmonary disease exacerbation. 2.Congestive heart failure, compensated. 3.Hypertension. 4.Status post defibrillator and pacemaker. 5.Chronic anxiety. Plan: The patient is started on IV steroids, IV antibiotic, breathing treatment, BiPAP. The patient does not want endotracheal intubation or a ventilator. The patient, however, is doing better. She will be transferred to the floor. RAMIRO/KARLOS Voice ID: [id number]
[2018-09-17] MEDS: ALPRAZOLAM 0.25 MG TABLET PO PRN ×3 (04:51→20:39)
[2018-09-17] MEDS: CEFEPIME/SWI 1gm 10 ML IV SCH ×2 (05:02→16:53)
[2018-09-17] MEDS: CARVEDILOL 3.125 MG TAB PO SCH ×2 (09:27→20:39)
[2018-09-17] MEDS: ASPIRIN EC 81 MG TAB PO SCH (09:27)
[2018-09-17] MEDS: CLOPIDOGREL 75 MG TABLET PO SCH (09:27)
[2018-09-17] MEDS: acetaZOLAMIDE 250 MG TAB PO SCH (09:27)
[2018-09-17] MEDS: predniSONE 20 MG TAB PO SCH ×2 (09:27→20:39)
--- NOTE | 2018-09-17 10:13 | EKG ---
Test Date: 2018-09-16 Test Time: 01:58:49 Talent Acquisition Lead: KIN MEASUREMENT RESULTS: Intervals: Rate: 134 DE: 120 QRSD: 106 QT: 302 QTc: 450 [place]: P: 62 DE: 120 QRS: 39 T: 118 INTERPRETIVE STATEMENTS: Sinus tachycardia Anteroseptal infarct, age undetermined ST & T wave abnormality, consider inferolateral ischemia Abnormal ECG Compared to ECG 08/10/2018 13:01:28 Myocardial infarct finding now present ST (T wave) deviation now present Possible ischemia now present Ventricular-paced complex(es) or rhythm no longer present Atrial-sensed ventricular-paced complex(es) or rhythm no longer present Electronically Signed On 09-17-18 10:12:31 COMMERCIAL LOAN ANALYST by Petar Huizar
[2018-09-17] MEDS ORDERED: ALPRAZOLAM 0.25 MG TABLET PO SCH (18:00)
--- NOTE | 2018-09-17 20:20 | PN ---
Patient is doing better. She still needs the BiPAP. Her wheezing is mild to moderate. She is on st eroids, which will be continued. RAMIRO/KARLOS Voice ID: [id number] Report ID: [id number]
[2018-09-17] MEDS: ARFORMOTEROL TARTRATE 15 MCG/2 ML VIAL.NEB IH SCH (21:00)
[2018-09-18] MEDS: IPRATROPIUM BROM 0.5MG/2.5ML NEB SCH ×4 (02:00→19:30)
[2018-09-18] MEDS: ALPRAZOLAM 0.25 MG TABLET PO PRN ×2 (05:15→18:28)
[2018-09-18] MEDS: CEFEPIME/SWI 1gm 10 ML IV SCH ×2 (05:15→17:30)
[2018-09-18 05:53] VITALS: BMI 19.0
[2018-09-18] MEDS: ARFORMOTEROL TARTRATE 15 MCG/2 ML VIAL.NEB IH SCH ×2 (08:12→19:30)
[2018-09-18] MEDS: acetaZOLAMIDE 250 MG TAB PO SCH (10:59)
[2018-09-18] MEDS: CLOPIDOGREL 75 MG TABLET PO SCH (11:00)
[2018-09-18] MEDS: CARVEDILOL 3.125 MG TAB PO SCH ×2 (11:00→21:47)
[2018-09-18] MEDS: predniSONE 20 MG TAB PO SCH (11:00)
[2018-09-18] MEDS: ASPIRIN EC 81 MG TAB PO SCH (11:01)
--- NOTE | 2018-09-18 12:26 | P.PN ---
Subjective Date of Service: 09/18/18 Chief Complaint: COPD exacerbation Patient's condition is stable according to the respiratory therapist this seems to be a problem with her mask Review of Systems General: Weakness Respiratory: Shortness of Breath Physical Examination - Vital Signs Temperature: 97.1 F Blood Pressure: 147/73 Pulse: 90 Respirations: 20 Pulse Ox (%): 97 - Physical Exam General: Alert, In no apparent distress, Oriented x3 Respiratory: Clear to auscultation bilaterally, Expiratory wheezes - Studies Microbiology Data (last 24 hrs): 09/16/18 03:25 Clean Catch Urine [place] Count - Final BETWEEN 10,000 & 100,000 CFU/ML 09/16/18 03:25 Clean Catch Urine - Final Assessment & Plan - Problems (Diagnosis) (1) Acute and chronic respiratory failure Current Visit: No Status: Acute Plan: Patient is 67 years of age admitted with COPD exacerbation this seems to be a problem with her noninvasive ventilator according to the respiratory therapy the may be a problem with her mask observe for 1 more day on noninvasive ventilator patient's cultures are all negative troponin is mildly elevated may be from her COPD and right ventricular strain will discharge home tomorrow Qualifiers: Respiratory failure complication: hypoxia and hypercapnia
[2018-09-18] MEDS: predniSONE 10 MG TAB PO SCH (21:47)
[2018-09-19] MEDS: ALPRAZOLAM 0.25 MG TABLET PO PRN ×2 (00:29→06:20)
[2018-09-19] MEDS: IPRATROPIUM BROM 0.5MG/2.5ML NEB SCH ×4 (01:20→20:10)
[2018-09-19] MEDS: ALBUTEROL 2.5 MG/3 ML NEB SOL NEB PRN (01:20)
[2018-09-19] MEDS: CEFEPIME/SWI 1gm 10 ML IV SCH ×2 (06:05→17:17)
[2018-09-19] MEDS: ARFORMOTEROL TARTRATE 15 MCG/2 ML VIAL.NEB IH SCH (09:10)
[2018-09-19 09:35] LABS: Arterial Blood Carboxyhemoglob 1.1 % (0-1.5); Blood Gas Oxyhemoglobin 94.6 % (94-97); Blood O2 Saturation 96.3 % (92-98.5)
[2018-09-19] MEDS: acetaZOLAMIDE 250 MG TAB PO SCH (10:10)
[2018-09-19] MEDS: CLOPIDOGREL 75 MG TABLET PO SCH (10:11)
[2018-09-19] MEDS: ASPIRIN EC 81 MG TAB PO SCH (10:11)
[2018-09-19] MEDS: CARVEDILOL 3.125 MG TAB PO SCH ×2 (10:11→21:17)
[2018-09-19] MEDS: predniSONE 10 MG TAB PO SCH (10:12)
--- NOTE | 2018-09-19 12:10 | P.PN ---
Subjective Date of Service: 09/19/18 Chief Complaint: COPD exacerbation with altered mental status Patient is not doing well he is not tolerate her a noninvasive ventilator in fact she is much better off with the hospital BiPAP intact patient and are as mentioned to me that if the noninvasive ventilator has been a problem I did have marketing sales representative from [employer] adjust the machine and provided with new mass with no relief. This morning when a order she was found slumped over with tried to use her machine he got worse per on BiPAP blood gases showed worsening hypercapnia Review of Systems is unable to be obtained Physical Examination - Vital Signs Temperature: 97.5 F Blood Pressure: 180/81 Pulse: 91 Respirations: 19 Pulse Ox (%): 93 - Physical Exam General: Moderate distress, Other (Minimally responsive) Neck: Supple Respiratory: Clear to auscultation bilaterally, Diminished - Studies Microbiology Data (last 24 hrs): 09/16/18 03:25 Clean Catch Urine [place] Count - Final BETWEEN 10,000 & 100,000 CFU/ML 09/16/18 03:25 Clean Catch Urine - Final Assessment & Plan - Problems (Diagnosis) (1) Acute and chronic respiratory failure Current Visit: No Status: Acute Plan: Patient admitted with respiratory failure have contacted marketing sales representative for a noninvasive vent to come and evaluate her a sheen and pack changer to a BiPAP mode she does not tolerate current settings will titrate sat to 90% repeat blood gases patient's blood pressure is elevated Qualifiers: Respiratory failure complication: hypoxia and hypercapnia
[2018-09-19] MEDS: METHYLPREDNISOLONE 40 MG INJ IV SCH ×2 (12:30→17:17)
[2018-09-19 13:30] LABS: Arterial Blood Carboxyhemoglob 1.4 % (0-1.5); Blood Gas Oxyhemoglobin 86.9 % (94-97); Blood O2 Saturation 88.8 % (92-98.5)
[2018-09-19] MEDS ORDERED: ALBUTEROL 2.5 MG/3 ML NEB SOL NEB PRN (15:00)
[2018-09-19] MEDS: ARFORMOTEROL TARTRATE 15 MCG/2 ML VIAL.NEB NEB SCH (20:10)
[2018-09-20] MEDS: METHYLPREDNISOLONE 40 MG INJ IV SCH (01:15)
[2018-09-20] MEDS: IPRATROPIUM BROM 0.5MG/2.5ML NEB SCH ×4 (01:25→20:00)
--- NOTE | 2018-09-20 03:17 | PN ---
The patient is lethargic in view of that I stopped the Xanax. She is not eating well. I spoke to th e family regarding her care. She has end-stage COPD and congestive heart failure. The patient will be continued on the same management. RAMIRO/KARLOS Voice ID: [id number] Report ID: [id number]
[2018-09-20] MEDS: CEFEPIME/SWI 1gm 10 ML IV SCH (05:24)
[2018-09-20] MEDS: ARFORMOTEROL TARTRATE 15 MCG/2 ML VIAL.NEB NEB SCH ×2 (07:20→20:00)
[2018-09-20 08:25] LABS: BUN Blood Urea Nitrogen 42 mg/dL (7-18); Bicarbonate 33 mmol/L (21-32); Glucose Level 111 mg/dL (74-106); Potassium 4.8 mmol/L (3.5-5.1); Sodium Level 143 mmol/L (136-145)
--- NOTE | 2018-09-20 08:31 | ECHO ---
HEIGHT: 4 ft 11 in WEIGHT: 94 lb 0 oz DATE OF STUDY: 09/19/[address]: Chris Durpee MD 2-DIMENSIONAL: YES M.MODE: YES DOPPLER: YES COLOR FLOW: YES TDS: NO PORTABLE: NO DEFINITY: NO BUBBLE STUDY: NO DIAGNOSIS: RESPIRATORY FAILURE CARDIAC HISTORY: CATHERIZATION: YES SURGERY: NO PROSTHETIC VALVE: NO PACEMAKER: YES MEASUREMENTS (cm) DIASTOLIC (NORMALS) SYSTOLIC (NORMALS) IVSd 1.0 (0.6-1.2) LA Diam 2.7 (1.9-4.0) LVEF 72% LVIDd 3.4 (3.5-5.7) LVIDs 2.0 (2.0-3.5) %FS 40% LVPWd 1.0 (0.6-1.2) Ao Diam 2.6 (2.0-3.7) 2 DIMENSIONAL ASSESSMENT: RIGHT ATRIUM: NORMAL LEFT ATRIUM: NORMAL RIGHT VENTRICLE: PACEMAKER LEFT VENTRICLE: NORMAL TRICUSPID VALVE: NORMAL MITRAL VALVE: NORMAL PULMONIC VALVE: NORMAL AORTIC VALVE: NORMAL PERICARDIAL EFFUSION: NONE AORTIC ROOT: NORMAL LEFT VENTRICULAR WALL MOTION: NORMAL LEFT VENTRICULAR EJECTION FRACTION. DECREASED LEFT VENTRICULAR COMPLIANCE. DOPPLER/COLOR FLOW: MILD TRICUSPID REGURGITATION. MILD PULMONARY HYPERTENSION. COMMENTS: NORMAL LEFT VENTRICULAR SIZE AND FUNCTION. DECREASED LEFT VENTRICULAR COMPLIANCE. MILD TRICUSPID REGURGITATION. MILD PULMONARY HYPERTENSION. TECHNOLOGIST: Lynda WHIPPLE
--- NOTE | 2018-09-20 08:49 | P.PN ---
Subjective Date of Service: 09/20/18 Chief Complaint: COPD exacerbation with altered mental status Patient is doing much better today she is more alert responsive and cooperative in tolerating the BiPAP Review of Systems General: Weakness Respiratory: Shortness of Breath Physical Examination - Vital Signs Temperature: 98.1 F Blood Pressure: 177/94 Pulse: 86 Respirations: 22 Pulse Ox (%): 100 - Physical Exam General: Alert, Oriented x3 Respiratory: Clear to auscultation bilaterally, Diminished Assessment & Plan - Problems (Diagnosis) (1) Acute and chronic respiratory failure Current Visit: No Status: Acute Plan: Patient has terminal COPD intolerant to the noninvasive ventilator I did contract [employer] agree with stopping the Xanax a leather goods sales representative to change the machine to BiPAP 17 or 9 which she seems to tolerate very well. Advance diet Dc antibiotics reduce dose of prednisone blood pressure elevated started patient on 0 amlodipine Qualifiers: Respiratory failure complication: hypoxia and hypercapnia
[2018-09-20] MEDS ORDERED: AMLODIPINE 5 MG TAB PO SCH (09:00)
[2018-09-20] MEDS: predniSONE 20 MG TAB PO SCH ×2 (09:37→21:17)
[2018-09-20] MEDS: CLOPIDOGREL 75 MG TABLET PO SCH (09:37)
[2018-09-20] MEDS: acetaZOLAMIDE 250 MG TAB PO SCH (09:37)
[2018-09-20] MEDS: CARVEDILOL 3.125 MG TAB PO SCH ×2 (09:38→21:17)
[2018-09-20] MEDS: ASPIRIN EC 81 MG TAB PO SCH (09:41)
[2018-09-20] MEDS: HYDRALAZINE HCL 20 MG/ML VIAL IV PRN (17:46)
--- NOTE | 2018-09-20 17:53 | PN ---
The patient is still lethargic, not eating well. I spoke to the daughter as well as son. After long discussions, they decided to have hospice care. The patient will have a consultation from hospice t antonina to satisfy family's wish. The patient has end-stage chronic obstructive pulmonary disease and she would qualify for hospice car milla RUBIO/KARLOS Voice ID: [id number] Report ID: [id number]
[2018-09-21] MEDS: IPRATROPIUM BROM 0.5MG/2.5ML NEB SCH ×4 (02:00→19:40)
[2018-09-21] MEDS: HYDRALAZINE HCL 20 MG/ML VIAL IV PRN (03:38)
[2018-09-21] MEDS: ARFORMOTEROL TARTRATE 15 MCG/2 ML VIAL.NEB NEB SCH ×2 (07:30→19:40)
--- NOTE | 2018-09-21 08:44 | P.PN ---
Subjective Date of Service: 09/21/18 Chief Complaint: Respiratory failure Patient is doing better she is alert responsive cooperative no new complaints tolerating the BiPAP Review of Systems General: Weakness Respiratory: Shortness of Breath Physical Examination - Vital Signs Temperature: 97.6 F Blood Pressure: 164/80 Pulse: 100 Respirations: 16 Pulse Ox (%): 94 - Physical Exam General: Alert, Mild distress Respiratory: Diminished, Expiratory wheezes Cardiovascular: No edema, Regular rate/rhythm - Studies Microbiology Data (last 24 hrs): 09/16/18 02:30 Blood - Blood Aerobic Blood Culture - Final No growth in 5 days. 09/16/18 02:30 Blood - Blood Anaerobic Blood Culture - Final No growth in 5 days. 09/16/18 02:10 Blood - Blood Aerobic Blood Culture - Final No growth in 5 days. 09/16/18 02:10 Blood - Blood Anaerobic Blood Culture - Final No growth in 5 days. Assessment & Plan - Problems (Diagnosis) (1) Acute and chronic respiratory failure Current Visit: No Status: Acute Plan: Patient admitted with acute on chronic respiratory failure no event sepsis the plan to change her settings to a BiPAP of increasing amlodipine increase nutrition trial off BiPAP Qualifiers: Respiratory failure complication: hypoxia and hypercapnia
[2018-09-21] MEDS ORDERED: AMLODIPINE 5 MG TAB PO SCH (09:00)
[2018-09-21] MEDS: ASPIRIN EC 81 MG TAB PO SCH (09:51)
[2018-09-21] MEDS: CLOPIDOGREL 75 MG TABLET PO SCH (09:51)
[2018-09-21] MEDS: AMLODIPINE 10 MG TAB PO SCH (09:51)
[2018-09-21] MEDS: CARVEDILOL 3.125 MG TAB PO SCH ×2 (09:51→21:34)
[2018-09-21] MEDS: predniSONE 20 MG TAB PO SCH ×2 (09:52→21:34)
[2018-09-21] MEDS: acetaZOLAMIDE 250 MG TAB PO SCH (09:58)
--- NOTE | 2018-09-22 01:10 | PN ---
The patient is still unable to tolerate off BiPAP machine and she is not eating well. As documented in the notes yesterday, family did ask for hospice care. This will be followed up with the staff morgan se as to what happened. RAMIRO/KARLOS Voice ID: [id number] Report ID: [id number]
[2018-09-22] MEDS: IPRATROPIUM BROM 0.5MG/2.5ML NEB SCH ×4 (01:35→19:33)
[2018-09-22] MEDS: ARFORMOTEROL TARTRATE 15 MCG/2 ML VIAL.NEB NEB SCH ×2 (07:50→19:33)
[2018-09-22] MEDS: AMLODIPINE 10 MG TAB PO SCH (09:19)
[2018-09-22] MEDS: predniSONE 20 MG TAB PO SCH (09:20)
[2018-09-22] MEDS: ASPIRIN EC 81 MG TAB PO SCH (09:20)
[2018-09-22] MEDS: CLOPIDOGREL 75 MG TABLET PO SCH (09:20)
[2018-09-22] MEDS: CARVEDILOL 3.125 MG TAB PO SCH (09:20)
[2018-09-22] MEDS: acetaZOLAMIDE 250 MG TAB PO SCH (09:20)
--- NOTE | 2018-09-22 10:43 | P.PN ---
Subjective Date of Service: 09/22/18 Chief Complaint: COPD exacerbation Patient is doing better she is more alert today not eating or drinking awaiting BiPAP Review of Systems General: Weakness Respiratory: Shortness of Breath Physical Examination - Vital Signs Temperature: 97.6 F Blood Pressure: 130/77 Pulse: 96 Respirations: 18 Pulse Ox (%): 96 - Physical Exam General: Alert, In no apparent distress, Oriented x3 Respiratory: Diminished Cardiovascular: No edema, Regular rate/rhythm Assessment & Plan - Problems (Diagnosis) (1) Acute and chronic respiratory failure Current Visit: No Status: Acute Plan: Patient is doing better she is more alert responsive cooperative doing well on a BiPAP diffusing to eat and drink I have advised her to drink Ensure awaiting BiPAP from [facility] reduce prednisone to 10 mg twice a day once the BiPAP has been set up patient can be discharged home to resume her home medications Qualifiers: Respiratory failure complication: hypoxia and hypercapnia
[2018-09-22 19:16] VITALS: BP 116/59; TEMP 97.1
[2018-09-22 19:39] VITALS: O2SAT 97
[2018-09-22] MEDS ORDERED: predniSONE 10 MG TAB PO SCH (21:00)
== END 2018-09-22 19:50 | disposition hospice, home (50) | DRG 190 ==
LOC: ER 01:42 → ERHOLD 04:04 → 3RD-ICU 04:37 → 2ND 09-17 10:24
PROVIDERS: ADMIT Internal Medicine; ATTEND Internal Medicine
DX: J44.1 Chronic obstructive pulmonary disease with (acute) exacerbation (principal); J96.21 Acute and chronic respiratory failure with hypoxia; J96.22 Acute and chronic respiratory failure with hypercapnia; E87.2 Acidosis; Z88.5 Allergy status to narcotic agent; Z88.0 Allergy status to penicillin; Z95.810 Presence of automatic (implantable) cardiac defibrillator; F17.210 Nicotine dependence, cigarettes, uncomplicated; F41.9 Anxiety disorder, unspecified; Z66 Do not resuscitate; Z51.5 Encounter for palliative care; I11.0 Hypertensive heart disease with heart failure; I50.9 Heart failure, unspecified
CPT/HCPCS: 36415; 71045; 80048; 80076; 80198; 82805; 83605; 83735; 83880; 84145; 84484; 85025; 85610; 87040; 87086; 87088; 87804; 93005; 93306; 94640; 94660; 94760; 96361; 96365; 96372; 96375; 99291; J0360; J0456; J0692; J1160; J1650; J1940; J2920; J2930; J7030; J7512; J7605